=== PATIENT | female | born 1935 | race Caucasian/White ===

== ENCOUNTER 2018-09-07 13:14 | Emergency (ER) | payer MEDICARE, MEDICAID ==
[2018-09-07 15:51] LABS: Bilirubin Negative (Negative); Blood, Urine Trace (Negative); Clarity CLEAR (Clear); Glucose, Urine (Dipstick) Negative (Negative); Leukocyte Trace (Negative); Nitrite Negative (Negative); Protein, Urine (Dipstick) 30 mg/dL (Neg-Trace); Urobilinogen 0.2 mg/dL (0.2-1.0)
[2018-09-07 15:57] LABS: Bacteria/HPF None Seen HPF (None Seen); Hyaline Casts/LPF 0-3 HYALINE CAST LPF (0-3 Hyaline); Pathc Cast-AUWi Flag 0.14 (0-2.49); RBC/HPF 0-3 HPF (0-3); Squamous Epithelial 0-3 HPF (0-3); WBC/HPF 0-3 HPF (0-3)
== END 2018-09-07 17:51 | disposition home or self-care (01) ==
LOC: ERS 13:14
DX: L30.9 Dermatitis, unspecified (principal)
CPT/HCPCS: 81003; 81015; 99283

== ENCOUNTER 2018-11-21 14:36 | Emergency (ER) | payer MEDICARE, MEDICAID ==
[2018-11-21 15:48] LABS: Hemoglobin 13.6 g/dL (12.0-16.0); Mean Corpuscular HGB CONC 32.1 g/dL (32.0-36.0); Mean Corpuscular Hemoglobin 30.5 pg (27.0-31.0); Mean Platelet Volume 7.8 fL (7.4-10.4); Platelet Count 201 thou/uL (130-400); RBC Distribution Width 13.2 % (11.5-14.5); Red Blood Cell (RBC) Count 4.44 mill/uL (4.20-5.40); White Blood Cell (WBC) Count 6.4 thou/uL (4.8-10.8)
[2018-11-21 16:06] LABS: Band 1 % (5-11); Eosinophils 1 % (0-10); Lymphocytes 10 % (21-51); MDiff Complete? YES; Monocytes 1 % (0-10); Neutrophil 87 % (42-75); Platelet Morphology Comment Appears Adequate; Poikilocytosis SLIGHT = 6-15 cells (100X) (0-5/hpf)
[2018-11-21 16:21] LABS: ALT (SGPT) Less than 7 U/L (8-55); AST (SGOT) 23 U/L (5-34); Albumin 3.3 g/dL (3.4-4.8); Alkaline Phosphatase 107 U/L (40-150); Anion Gap 18 mmol/L (10-20); BUN (Urea Nitrogen) 26 mg/dL (9.8-20.1); Bilirubin, Total 0.4 mg/dL (0.2-1.2); Calc. Creatinine Clearance 0 mL/min (70-130); Calcium 8.8 mg/dL (7.8-10.44); Carbon Dioxide 17 mmol/L (23-31); Chloride 103 mmol/L (98-107); Estimated GFR-MDRD 26; Globulin 3.4 g/dL (2.4-3.5); Glucose 106 mg/dL (83-110); Potassium 4.6 mmol/L (3.5-5.1); Protein, Total 6.7 g/dL (6.0-8.3); Sodium 133 mmol/L (136-145)
== END 2018-11-21 17:40 | disposition home or self-care (01) ==
LOC: ERS 14:36
DX: R53.83 Other fatigue (principal); R53.81 Other malaise
CPT/HCPCS: 36415; 80053; 85025; A4353

== ENCOUNTER 2018-11-24 00:29 | Inpatient (IN) | payer MEDICARE, MEDICAID ==
[2018-11-24 00:56] LABS: Bacteria/HPF 4+ HPF (None Seen); RBC/HPF 0-3 HPF (0-3)
[2018-11-24 00:58] LABS: Bilirubin Small (Negative); Blood, Urine Negative (Negative); Clarity TURBID (Clear); Glucose, Urine (Dipstick) Negative (Negative); Leukocyte Large (Negative); Nitrite Negative (Negative); Protein, Urine (Dipstick) 100 mg/dL (Neg-Trace); Specific Gravity, Urine 1.011 (1.002-1.036); Urobilinogen 0.2 mg/dL (0.2-1.0); pH, Urine 7.5 (5.0-9.0)
[2018-11-24 01:00] LABS: Pathc Cast-AUWi Flag 3.69 (0-2.49); Yeast-AUWi Flag 50.4 (0-25.0)
[2018-11-24 01:05] LABS: Hyaline Casts/LPF 0-3 HYALINE CAST LPF (0-3 Hyaline); Yeast-All Forms None Seen HPF (None Seen)
[2018-11-24 01:06] LABS: Crystals/HPF 3+ AMORPH PHOS HPF (Negative); Manual Microscopic Reviewed? No Path Casts Seen
[2018-11-24 01:33] LABS: #Eosinphils 0.3 thou/uL (0.0-0.7); #Monocytes 0.6 thou/uL (0.11-0.59); #Neutrophils 5.4 thou/uL (1.40-6.50); %Basophils 0.4 % (0.0-1.0); %Eosinophils 4.6 % (0.0-10.0); %Monocytes 8.4 % (0.0-10.0); %Neutrophils 72.7 % (42.0-75.0); Hemoglobin 14.5 g/dL (12.0-16.0); Mean Corpuscular HGB CONC 32.2 g/dL (32.0-36.0); Mean Corpuscular Hemoglobin 30.3 pg (27.0-31.0); Mean Corpuscular Volume 94.2 fL (78.0-98.0); Platelet Count 186 thou/uL (130-400); RBC Distribution Width 13.2 % (11.5-14.5); Red Blood Cell (RBC) Count 4.77 mill/uL (4.20-5.40); White Blood Cell (WBC) Count 7.4 thou/uL (4.8-10.8)
[2018-11-24 01:49] LABS: ALT (SGPT) 8 U/L (8-55); AST (SGOT) 14 U/L (5-34); Albumin 4.4 g/dL (3.4-4.8); Alkaline Phosphatase 112 U/L (40-150); Anion Gap 18 mmol/L (10-20); BUN (Urea Nitrogen) 24 mg/dL (9.8-20.1); Bilirubin, Total 0.4 mg/dL (0.2-1.2); Calc. Creatinine Clearance 0 mL/min (70-130); Calcium 9.9 mg/dL (7.8-10.44); Carbon Dioxide 21 mmol/L (23-31); Chloride 104 mmol/L (98-107); Estimated GFR-MDRD 24; Globulin 3.1 g/dL (2.4-3.5); Glucose 96 mg/dL (83-110); Protein, Total 7.5 g/dL (6.0-8.3); Sodium 139 mmol/L (136-145)
[2018-11-24 02:20] LABS: CKMB 1.5 ng/mL (0-6.6)
[2018-11-24] MEDS ORDERED: Aspirin Chewable 81 MG TAB ONE (02:31)
[2018-11-24] MEDS ORDERED: cefTRIAXone\\ROCEPHIN 1 GM VIAL ONE (02:31)
--- NOTE | 2018-11-24 02:45 | PDOC.FPRHP ---
- History of Present Illness Chief Complaint: AMS History of Present Illness: Ms Yan is a 83yo female with pmh of dementia who resides at [facility] living who presented to the ED by EMS. Her neighbors called the police because she was hanging off her balcony screaming for help because "she didn't live there." HPI unobtainable due to mental status. She is oriented to person only. Requesting to leave because she reports she starts a new job tomorrow and lives with her mother. Her son's phone is turned off and [place] reports no one is available to talk to that sees her daily until 8am. It does appear that she has a hx of abdomen/pelvic cancer s/p extensive surgery as well as a left temporoparietal peripherally enhancing mass with central necrosis on MRI/CT 2013. ED Course: Rocephin 1g for UTI. ASA 325mg for elevated trop. EKG with Afib. No prior EKGs for reference. - History PMHx, FHx, Social: Unable to obtain due to pts mental status. Attempted to call [facility] but pt is in independent living and does not have caregiver. Staff for that building will not be available until 8am. PSHx: Extensive abdominal surgeries. - Review of Systems ROS unobtainable: due to mental status General: denies: fever/chills, fatigue Eyes: denies: eye pain, vision changes ENT: denies: nasal congestion, rhinorrhea Respiratory: denies: cough, congestion, shortness of breath Cardiovascular: denies: chest pain, palpitation Gastrointestinal: reports: other (urostomy and colostomy bag) Skin: denies: rashes, lesions Musculoskeletal: denies: pain, swelling - Vital signs BP: 168/95 HR: 65 RR: 18 Tmax: 97.8 Pox: 95% on RA Wt: 54kg - Physical Exam Constitutional: NAD, awake, alert and oriented, well developed -Constitutional: clothing soiled with stool HEENT: normocephalic and atraumatic, conjunctiva clear, MMM, oropharynx clear Neck: supple, trachea midline, no bruits Heart: RRR, no murmurs/rubs/gallops Lungs: CTAB, no respiratory distress Abdomen: soft, bowel sounds present -Abdomen: mild epigastric tenderness. No rebound or rigidity Musculoskeletal: normal structure, normal tone, ROM grossly normal Neurological: no focal deficit Skin: no rash/lesions -Skin: Urostomy and colostomy bag in place -Psychiatric: Oriented only to person FMR H&P: Results - Labs Result Diagrams: 11/24/18 01:15 11/24/18 01:15 Lab results: WBC 7.4 thou/uL (4.8-10.8) 11/24/18 01:15 Hgb 14.5 g/dL (12.0-16.0) 11/24/18 01:15 Hct 45.0 % (36.0-47.0) 11/24/18 01:15 MCV 94.2 fL (78.0-98.0) 11/24/18 01:15 Plt Count 186 thou/uL (130-400) 11/24/18 01:15 Neutrophils % 72.7 % (42.0-75.0) 11/24/18 01:15 Sodium 139 mmol/L (136-145) 11/24/18 01:15 Potassium 4.0 mmol/L (3.5-5.1) 11/24/18 01:15 Chloride 104 mmol/L (98-107) 11/24/18 01:15 Carbon Dioxide 21 mmol/L (23-31) L 11/24/18 01:15 BUN 24 mg/dL (9.8-20.1) H 11/24/18 01:15 Creatinine 2.01 mg/dL (0.6-1.1) H 11/24/18 01:15 Glucose 96 mg/dL (83-110) 11/24/18 01:15 Calcium 9.9 mg/dL (7.8-10.44) 11/24/18 01:15 Total Bilirubin 0.4 mg/dL (0.2-1.2) 11/24/18 01:15 AST 14 U/L (5-34) 11/24/18 01:15 ALT 8 U/L (8-55) 11/24/18 01:15 Alkaline Phosphatase 112 U/L (40-150) 11/24/18 01:15 CK-MB (CK-2) 1.5 ng/mL (0-6.6) 11/24/18 01:15 Serum Total Protein 7.5 g/dL (6.0-8.3) 11/24/18 01:15 Albumin 4.4 g/dL (3.4-4.8) 11/24/18 01:15 Urine Ketones Negative mg/dL (Negative) 11/24/18 00:43 Urine Blood Negative (Negative) 11/24/18 00:43 Urine Nitrite Negative (Negative) 11/24/18 00:43 Ur Leukocyte Esterase Large (Negative) H 11/24/18 00:43 Urine RBC 0-3 HPF (0-3) 11/24/18 00:43 Urine WBC Greater Than 50-TNTC HPF (0-3) H 11/24/18 00:43 Ur Squamous Epith Cells 4-6 HPF (0-3) H 11/24/18 00:43 Urine Bacteria 4+ HPF (None Seen) H 11/24/18 00:43 - EKG Interpretation EK lead EKG shows, atrial fibrillation with controlled ventricular response, ST segments normal, T waves, [place] normal. FMR H&P: A/P - Problem List (1) Atrial fibrillation Current Visit: Yes Status: Acute Code(s): I48.91 - UNSPECIFIED ATRIAL FIBRILLATION (2) Encephalopathy Current Visit: Yes Status: Acute Code(s): G93.40 - ENCEPHALOPATHY, UNSPECIFIED (3) Dementia Current Visit: Yes Status: Acute Code(s): F03.90 - UNSPECIFIED DEMENTIA WITHOUT BEHAVIORAL DISTURBANCE (4) UTI (urinary tract infection) Current Visit: Yes Status: Acute - Plan 83yo female with pmh of dementia presents for encephalopathy Encephalopathy - 2/2 UTI vs worsening dementia - Brain CT no acute abnormalities - UTI tx'ed with Ceftriaxone - Will obtain further hx from [place] and son in AM - Admit to tele obs Afib - Unknown if new onset - Ordered TSH, Mg, Phos - Monitor on tele UTI - Treated with Ceftriaxone in the ED HARINDER vs CKD - Cr 2.01 - Continue to monitor Urostomy & Colostomy Code Status: FULL, discuss with son and [place] in AM DVT ppx: SCDs FMR H&P: Upper Level - Pertinent history 83 yo female here via ambulance apparently from [place]. History given thru EMS who reports patient was picked up from [place]. Neighbors called because patient was screaming from [employer], saying she was going to jump off [employer]. 1 week of worsening AMS. Pt hx of dementia. Patient oriented to person, not place or time. Pt wants to go home because she is starting a new job soon. Refuses to answer some questions about where she is. Reports she is not staying at the hospital overnight. Apparently ER doctor called [facility] and spoke to multiple people who all said they do not have any record of the patient. Patient did not come with any paperwork such as medications or diagnosis. Per records, patient does have an colostomy and urostomy which are presumptively from a surgery related to hx lung cancer. MRI in chart indicating possible metastasis to brain. - Pertinent findings 168/95 HR: 77 98% on RA RR: 20 GEN: awake, easily agitated, oriented x1 CARD: irreg irregular, no murmurs noted PULM: CTAB Trop: 0.035 UA: large LE, WBC >50, bacteria 4+, squam epith 4-6 - Plan Date/Time: 11/24/18 0245 I, José Espinoza DO, have evaluated this patient and agree with findings/plan as outlined by technology development intern resident. Pertinent changes/additions are listed here. #acute encephalopathy 2/2 UTI -vs worsening dementia vs delirium, sundowning -rocephin in the ED UA on 09/07/18 had trace LE and trace blood, otherwise unremarkable -will admit for further monitoring -will attempt to call [facility] and family members in the morning for collateral including a medication list -urine cultures #indeterminate troponins -continue to trend #atrial fibrillation -rate controlled -telemetry -mg, phos, tsh -med rec #HARINDER vs CKD -she had similarly elevated Cr and GFR 3 days prior in hospital records #elevated BP Addendum - Attending - Attending Attestation Date/Time: 11/24/18 8796 I personally evaluated the patient and discussed the management with Dr. Monroy /Olga. I agree with the History, Examination, Assessment and Plan documented above with any addition or exceptions noted below. Patient here with altered mentation per neighbors but otherwise unknown recent medical history or complaints. She confabulates during my questioning this morning. We will discuss her case with [facility] this morning as well as the family to see if we can get further info. Continue workup for encephalopathy and suspect possible UTI at this time that we will continue treatment for. Further mgmt per clinical course.
[2018-11-24 04:51] LABS: Troponin I 0.027 ng/mL (< 0.028)
--- NOTE | 2018-11-24 05:29 | PDOC.FM ---
- Subjective Subjective: Patient does not know where she is this AM. Denies any pain. States that she has to go home for a job interview. States she feels confused. - Objective Result Diagrams: 11/24/18 01:15 11/24/18 01:15 Phys Exam - Physical Examination Constitutional: NAD HEENT: PERRLA, moist MMs Respiratory: no wheezing, clear to auscultation bilateral diffusely diminished breath sounds Cardiovascular: RRR, no significant murmur Gastrointestinal: soft, non-tender, no distention Musculoskeletal: no edema, pulses present Neurological: non-focal, moves all 4 limbs Psychiatric: normal affect Deviation from normal: AOx1 to self Skin: no rash, cap refill <2 seconds Dx/Plan (1) Encephalopathy Code(s): G93.40 - ENCEPHALOPATHY, UNSPECIFIED Status: Acute (2) Colostomy in place Code(s): Z93.3 - COLOSTOMY STATUS Status: Acute (3) Presence of urostomy Code(s): Z93.6 - OTHER ARTIFICIAL OPENINGS OF URINARY TRACT STATUS Status: Acute (4) Atrial fibrillation Code(s): I48.91 - UNSPECIFIED ATRIAL FIBRILLATION Status: Acute (5) Dementia Code(s): F03.90 - UNSPECIFIED DEMENTIA WITHOUT BEHAVIORAL DISTURBANCE Status: Acute (6) UTI (urinary tract infection) Status: Acute (7) Hypomagnesemia Code(s): E83.42 - HYPOMAGNESEMIA Status: Acute - Plan Plan: Encephalopathy - 2/2 UTI vs worsening dementia - Brain CT no acute abnormalities - on Ceftriaxone - Will obtain further hx from [place] and son Pulmonary infiltrate vs Mass -CXR: R upper infiltrate - 2 view CXR pending - Procal pending - Pt on rocephin Afib - Unknown if new onset - Ordered TSH, Mg, Phos - mag low, others normal - Monitor on tele Hypomagnesemia -replace with IV mag this AM UTI - Treated with Ceftriaxone in the ED HARINDER vs CKD - Cr 2.01 - Continue to monitor Urostomy & Colostomy present Code Status: FULL, discuss with son and [place] in AM DVT ppx: SCDs Addendum - Attending - Attending Attestation Date/Time: 11/24/18 0920 I personally evaluated the patient and discussed the management with Dr. Díaz. I agree with the History, Examination, Assessment and Plan documented above with any addition or exceptions noted below. Encephalopathy workup as per H/P. Will discuss with family and facility regarding recent health status.
[2018-11-24 07:51] LABS: Magnesium 1.3 mg/dL (1.6-2.6); Phosphorus 2.9 mg/dL (2.3-4.7)
[2018-11-24 07:57] LABS: Troponin I 0.032 ng/mL (< 0.028)
--- NOTE | 2018-11-24 08:35 | RAD ---
PORTABLE CHEST: Date: 11/24/18 HISTORY: Mental status change. COMPARISON: 06/20/12. FINDINGS: Lungs show chronic change with mild hyperexpansion. There is increased density in the right apex toda y when compared to the prior study. This density overlies the anterior right first rib, but is asymme tric in appearance. A right apical mass or infiltrate cannot be excluded. Lungs otherwise appear clear. There is no evidence of vascular congestion or significant effusion. He art is mildly enlarged. Degenerative changes at both shoulders, more severe on the left. Old left rib fractures with rib defo rmities. IMPRESSION: There is a new opacity in the right lung apex when compared to recent exam. Mass density or infiltrat e not excluded. Upright PA and lateral views would be of benefit for better evaluation. Findings were relayed to the emergency department at the time of dictation. CODE CR. CODE T. POS: [facility]
--- NOTE | 2018-11-24 08:51 | CT ---
PRELIMINARY REPORT/[facility]/EMERGENTY AFTER-HOURS PROCEDURE CT Head Without Contrast EXAM DATE/TIME: 11/24/2018 12:48 AM CLINICAL HISTORY: 83 years old, female; Signs and symptoms; Altered mental status/memory loss; Confusion or disorientat ion; Patient HX: F83 presents to ed for AMS. Ems reports PT has dementia. Ems called bc PT was maddy b[place]ant [facility] for help at [place], hanging off balcony. PT ano x1, abnormal, friends reports thi s is the worst case of dementia ever. PT denies any pain, any cough or fever, has no complaints. TECHNIQUE: Axial computed tomography images of the head/brain without contrast. COMPARISON: No relevant prior studies available. FINDINGS: Brain: Scattered areas of hypoattenuation, likely chronic small vessel ischemic change, demyelination , or gliosis. No mass, hemorrhage, or acute infarction. Old lacunar infarction within the left periat rial white matter. Ventricles: Normal. Bones/joints: Normal. Sinuses: Normal as visualized. Mastoid air cells: Normal as visualized. Soft tissues: Unremarkable. Vasculature: Atherosclerotic vascular calcifications. IMPRESSION: No acute intracranial abnormality. Thank you for allowing us to participate in the care of your patient. Dictated and Authenticated by: Kurt Rodarte MD 11/24/2018 1:32 AM Central Time ([place] & [place]) FINAL REPORT HEAD CT WITHOUT CONTRAST: COMPARISON: 03/04/2004. HISTORY: Altered mental status. Memory loss. Dementia. FINDINGS: This report is in agreement with the preliminary report by [facility]. No acute intracranial process. Age- appropriate atrophy. Chronic small-vessel ischemic changes of the white matter are identified. Smal l calcification of the white matter adjacent to the posterior body of the left lateral ventricle, lik chepe representing a chronic process and may be sequelae of remote insult. POS: [facility]
[2018-11-24] MEDS ORDERED: Magnesium 2 GM/50 ML 2 GM in Premix Bag 1 BAG IVPB SCH (12:30)
[2018-11-24] MEDS ORDERED: Buprenorphine [Butrans] 1 PATCH TD SCH (13:15)
[2018-11-24 17:47] VITALS: BMI 19.0
--- NOTE | 2018-11-24 19:22 | CON ---
DATE OF CONSULTATION: 11/23/2018 REASON FOR CONSULTATION: Atrial fibrillation. HISTORY OF PRESENT ILLNESS: Ms. Yan is an 83-year-old woman with previous history of dementia and confusion, who recently was found to be in atrial fibrillation. She recently presented to the emergency room via EMS due to dementia. During my interview, she is not oriented to time or place. She currently denies any symptoms. 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 SOCIAL HISTORY: Currently resides in group home. HOME MEDICATIONS: Include, 1. Amlodipine. 2. Aspirin. 3. Clopidogrel. 4. Lasix. 5. Pravastatin. 6. Tramadol. REVIEW OF SYSTEMS: Unobtainable. PHYSICAL EXAMINATION: VITAL SIGNS: Blood pressure 120/70, pulse 80, and respirations 20. GENERAL: The patient is a pleasant 83-year-old, who is in no acute distress. The patient appears their stated age. NEUROLOGIC: The patient is not oriented to time or place. HEENT: Sclerae without icterus. Mouth has moist mucous membranes with normal pallor. NECK: No JVD. Carotid upstroke brisk. No bruits bilaterally. LUNGS: Clear to auscultation with unlabored respirations. BACK: No scoliosis or kyphosis. CARDIAC: Irregularly irregular. ABDOMEN: Soft, nontender, nondistended. No peritoneal signs present. No hepatosplenomegaly. No abnormal striae. EXTREMITIES: 2+ femoral and 2+ dorsalis pedis pulses. No cyanosis, clubbing, or edema. SKIN: No gross abnormalities. PERTINENT LABORATORY DATA: Hemoglobin 14.5. Peak troponin 0.032. IMPRESSION: 1. Atrial fibrillation. 2. Dementia. 3. Altered mental status. 4. Urinary tract infection. RECOMMENDATIONS: At this point, recommend rate control. Heart rate appears stable. At this point, I do not feel she is appropriate candidate for anticoagulation therapy. We will continue to monitor closely. Recommend echo with Doppler. We will add low-dose beta-bryce for better rate control. Otherwise, I would recommend a conservative therapy. Job ID: [id number] MTDD
[2018-11-24] MEDS ORDERED: Sterile Water 10 ML VIAL FS PRN (20:08)
[2018-11-24] MEDS: Ziprasidone 20 MG VIAL IM PRN (20:20)
[2018-11-24] MEDS: hydrALAZINE 20 MG/ML VIAL SLOW IVP PRN (21:37)
[2018-11-24] MEDS: Atorvastatin Calcium 20 MG TAB PO SCH (21:37)
[2018-11-24] MEDS: cefTRIAXone\\ROCEPHIN 1 GM in Sodium Chloride 0.9% 100 ML IVPB SCH (21:37)
[2018-11-24] MEDS ORDERED: Lorazepam 2 MG/ML VIAL SLOW IVP PRN (23:03)
[2018-11-25] MEDS: hydrALAZINE 20 MG/ML VIAL SLOW IVP PRN ×2 (06:05→23:55)
--- NOTE | 2018-11-25 06:33 | PDOC.FM ---
- Subjective Subjective: Patient sleeping on exam this morning. In soft restraints. - Objective Vital Signs & Weight: Vital Signs (12 hours) Temp Pulse Resp BP Pulse Ox 11/25/18 05:30 97.4 F L 82 16 197/95 H 94 L 11/24/18 19:45 98.4 F 61 16 184/96 H 98 Weight Weight 44.197 kg Result Diagrams: 11/25/18 06:09 11/25/18 06:09 Phys Exam - Physical Examination Constitutional: NAD HEENT: moist MMs Neck: no nodes, supple Respiratory: no wheezing, clear to auscultation bilateral Cardiovascular: RRR, no significant murmur Gastrointestinal: soft, non-tender, no distention, positive bowel sounds Musculoskeletal: no edema, pulses present Skin: no rash, normal turgor, cap refill <2 seconds Dx/Plan (1) Encephalopathy Code(s): G93.40 - ENCEPHALOPATHY, UNSPECIFIED Status: Acute (2) Colostomy in place Code(s): Z93.3 - COLOSTOMY STATUS Status: Acute (3) Presence of urostomy Code(s): Z93.6 - OTHER ARTIFICIAL OPENINGS OF URINARY TRACT STATUS Status: Acute (4) Atrial fibrillation Code(s): I48.91 - UNSPECIFIED ATRIAL FIBRILLATION Status: Acute (5) Dementia Code(s): F03.90 - UNSPECIFIED DEMENTIA WITHOUT BEHAVIORAL DISTURBANCE Status: Acute (6) UTI (urinary tract infection) Status: Acute (7) Hypomagnesemia Code(s): E83.42 - HYPOMAGNESEMIA Status: Acute - Plan Plan: Encephalopathy - 2/2 UTI vs worsening dementia - Patient placed in soft restraints and given geodon overnight, as she was combative and attempting to pull out lines. - Continue reorienting - Brain CT no acute abnormalities - on Ceftriaxone - Son requests CM to help with placement at [facility], CM consulted -States he was working on placing her outpatient prior to arrival UTI - WBC elevated this AM, may be 2/2 to stress vs infection - Continue ceftriaxone, cultures pending Pulmonary infiltrate vs Mass with Hx of lung cancer - CXR: R upper infiltrate - Procal negative - hx of lung cancer with mets to bone, brain HTN - continue amlodipine, furosemide, aspirin; started metoprolol today - Hydralazine PRN Afib - New onset per PCP - Ordered TSH, Mg, Phos - mag low, others normal - Cardiology Dr. Danielson consulted 11/24, recommendations appreciated -Conservative therapy, added a beta bryce -Metoprolol 25 mg daily added -Echo pending SVT overnight -16 beats, 180s-210 rate Hypomagnesemia -replaced with IV mag HARINDER vs CKD, improving - Cr 2.01 -> 1.53 Urostomy & Colostomy present Hx Uterine cancer Hx recent fall with rib fractures -buprenorphine patch Hx Macular degeneration Code Status: DNAR DVT ppx: SCDs PCP: Dr. Small, [facility] Addendum - Attending - Attending Attestation Date/Time: 11/25/18 2467 I personally evaluated the patient and discussed the management with Dr. Díaz. I agree with the History, Examination, Assessment and Plan documented above with any addition or exceptions noted below. Patient here for suspected encephalopathy 2/2 infection on top of co-exisiting dementia. She had some agitation and aggression overnight, but is currently resting comfortably and seems to be somewhat more lucid this morning. Per son, she has a history of similar issues from previous UTI. Continue Rocephin and await cx results. BP improved as compared to last night, will need to monitor. Work with CM on placement. Anticipate a few more days of hospitalization pending clinical course.
[2018-11-25 06:38] LABS: BUN (Urea Nitrogen) 20 mg/dL (9.8-20.1); Calc. Creatinine Clearance 20 mL/min (70-130); Calcium 9.4 mg/dL (7.8-10.44); Carbon Dioxide 19 mmol/L (23-31); Chloride 106 mmol/L (98-107); Estimated GFR-MDRD 32; Glucose 120 mg/dL (83-110); Potassium 4.2 mmol/L (3.5-5.1); Sodium 139 mmol/L (136-145)
[2018-11-25 06:48] LABS: #Basophils 0.2 thou/uL (0.0-0.2); #Eosinphils 0.1 thou/uL (0.0-0.7); #Lymphocytes 0.4 thou/uL (1.20-3.40); #Monocytes 0.7 thou/uL (0.11-0.59); #Neutrophils 11.5 thou/uL (1.40-6.50); %Basophils 1.7 % (0.0-1.0); %Eosinophils 0.9 % (0.0-10.0); %Lymphocytes 2.7 % (21.0-51.0); %Monocytes 5.6 % (0.0-10.0); %Neutrophils 89.1 % (42.0-75.0); Hemoglobin 14.1 g/dL (12.0-16.0); Mean Corpuscular HGB CONC 31.7 g/dL (32.0-36.0); Mean Corpuscular Hemoglobin 29.8 pg (27.0-31.0); Mean Corpuscular Volume 94.2 fL (78.0-98.0); Platelet Count 162 thou/uL (130-400); RBC Distribution Width 13.2 % (11.5-14.5); Red Blood Cell (RBC) Count 4.72 mill/uL (4.20-5.40); White Blood Cell (WBC) Count 12.9 thou/uL (4.8-10.8)
[2018-11-25 06:55] LABS: Anion Gap 18 mmol/L (10-20)
[2018-11-25] MEDS: Clopidogrel Bisulfate 75 MG TAB PO SCH (11:19)
[2018-11-25] MEDS: Amlodipine 5 MG TAB PO SCH (11:19)
[2018-11-25] MEDS: Furosemide 40 MG TAB PO SCH (11:19)
[2018-11-25] MEDS: Aspirin 81 mg Enteric Coated Tablet PO SCH (11:19)
[2018-11-25] MEDS: cefTRIAXone\\ROCEPHIN 1 GM in Sodium Chloride 0.9% 100 ML IVPB SCH (21:11)
[2018-11-25] MEDS: Atorvastatin Calcium 20 MG TAB PO SCH (21:11)
--- NOTE | 2018-11-26 07:29 | PDOC.FM ---
- Subjective Subjective: Patient remains confused this AM. She slept well overnight per nursing. Per son , patient is still not back at baseline and is more confused than normal. Patient has no other complaints this AM. - Objective Vital Signs & Weight: Vital Signs (12 hours) Temp Pulse Resp BP BP Pulse Ox 11/26/18 04:00 97.8 F 109 H 20 134/95 H 92 L 11/26/18 01:09 99 16 116/55 L 95 11/26/18 00:00 98.3 F 76 20 186/86 H 92 L 11/25/18 23:55 74 186/86 H 11/25/18 19:40 97.7 F 74 18 158/78 H 96 Weight Weight 44.588 kg I&O: 11/25/18 11/26/18 11/27/18 06:59 06:59 06:59 Intake Total 200 460 Output Total 750 1250 Balance -550 -790 Result Diagrams: 11/25/18 06:09 11/25/18 06:09 Phys Exam - Physical Examination Constitutional: NAD HEENT: PERRLA Respiratory: no wheezing, clear to auscultation bilateral Cardiovascular: RRR, no significant murmur Gastrointestinal: soft, non-tender, no distention, positive bowel sounds Musculoskeletal: no edema, pulses present Neurological: non-focal, normal sensation, moves all 4 limbs Psychiatric: normal affect Deviation from normal: AOx1 Skin: normal turgor, cap refill <2 seconds Dx/Plan (1) Encephalopathy Code(s): G93.40 - ENCEPHALOPATHY, UNSPECIFIED Status: Acute (2) Colostomy in place Code(s): Z93.3 - COLOSTOMY STATUS Status: Acute (3) Presence of urostomy Code(s): Z93.6 - OTHER ARTIFICIAL OPENINGS OF URINARY TRACT STATUS Status: Acute (4) Atrial fibrillation Code(s): I48.91 - UNSPECIFIED ATRIAL FIBRILLATION Status: Acute (5) Dementia Code(s): F03.90 - UNSPECIFIED DEMENTIA WITHOUT BEHAVIORAL DISTURBANCE Status: Acute (6) UTI (urinary tract infection) Status: Acute (7) Hypomagnesemia Code(s): E83.42 - HYPOMAGNESEMIA Status: Acute - Plan Plan: Encephalopathy - 2/2 UTI vs worsening dementia - Patient has had episode of combativeness during stay - Continue reorienting - Brain CT no acute abnormalities - Continue Ceftriaxone - Son requests CM to help with placement at [facility], CM consulted -States he was working on placing her outpatient prior to arrival - Slept well overnight, occasionally combative but doing better today. Keep all windows open, keep patient awake throughout day time. [place] as necessary. UTI - WBC elevated this AM, may be 2/2 to stress vs infection - Continue ceftriaxone, cultures showed 3 organisms/contamination, consider reculturing today Hx of lung cancer - CXR: R upper infiltrate - Procal negative - hx of lung cancer with mets to bone, brain HTN - continue amlodipine, furosemide, aspirin; started metoprolol today - Hydralazine PRN New Onset Afib - No History of a fib per PCP - Ordered TSH, Mg, Phos - mag low, others normal - Cardiology Dr. 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 Small, [facility] Addendum - Attending - Attending Attestation Date/Time: 11/26/18 1049 I personally evaluated the patient and discussed the management with Dr. Díaz. I agree with the History, Examination, Assessment and Plan documented above with any addition or exceptions noted below. Patient not agitated overnight, but is a little angry this morning. Continues to require sitter and frequent re-orientation. Her workup has overall been benign with the exception of UA that grew out a contaminated sample. We will continue Rocephin to complete a 5 day course. As she is more lucid and did not have agitation overnight, I would suspect that she is making some small improvements. We are working on more bar steward placement for her in coordination with the son and CM.
[2018-11-26] MEDS: Lactated Ringer's 1,000 ML IV SCH ×2 (09:24→22:31)
[2018-11-26] MEDS: Amlodipine 5 MG TAB PO SCH (09:25)
[2018-11-26] MEDS: Aspirin 81 mg Enteric Coated Tablet PO SCH (09:26)
[2018-11-26] MEDS: Clopidogrel Bisulfate 75 MG TAB PO SCH (09:26)
--- NOTE | 2018-11-26 10:32 | PQF ---
DATE: 11-26-18 ATTN: DR. VAUGHN GALINDO Please exercise your independent, professional judgment in responding to the clarification form. Clinical indicators are provided on the bottom of this form for your review Please check appropriate box(s): [ x ] Encephalopathy: Type: [ x ] Acute [ ] Subacute [ ] Chronic Etiology: [ ] Metabolic [ ] Toxic [ x ] in the setting of underlying dementia [ ] Other (please specify) [ ] Transient Alteration of Awareness [ x] Other diagnosis Infectious [ ] Unable to determine In addition, please specify: Present on Admission (POA): [ x ] Yes [ ] No [ ] Unable to determine For continuity of documentation, please document condition throughout progress notes and discharge summary. Thank You. Acute Infectious Encephalopathy in the setting of chronic dementia, POA CLINICAL INDICATORS - SIGNS / SYMPTOMS / LABS ER DX: UTI, AMS, A FIB, ELEVATED TROP H&P: ACUTE ENCEPHALOPATHY, DEMENTIA, UTI, HARINDER VS CKD RISK FACTORS H&P: ACUTE ENCEPHALOPATHY, DEMENTIA, UTI, HARINDER VS CKD TREATMENTS: H&P: ROCEPHIN IN THE ED, FURTHER MONITORING, URINE CULTURES MAR: 11-24-18: ROCEPHIN, LR IVF , GEODON IM PRN (This form is maintained as a part of the permanent medical record) 2015 [employer] All Rights Reserved [email or web address] Office: [phone] NIUR[place]
[2018-11-26] MEDS: Furosemide 40 MG TAB PO SCH (10:33)
[2018-11-26] MEDS: Ziprasidone 20 MG VIAL IM PRN (19:06)
[2018-11-26] MEDS: Atorvastatin Calcium 20 MG TAB PO SCH (21:48)
[2018-11-26] MEDS: cefTRIAXone\\ROCEPHIN 1 GM in Sodium Chloride 0.9% 100 ML IVPB SCH (21:48)
[2018-11-26 23:58] LABS: #Eosinphils 0.4 thou/uL (0.0-0.7); #Lymphocytes 0.9 thou/uL (1.20-3.40); #Monocytes 0.6 thou/uL (0.11-0.59); #Neutrophils 4.1 thou/uL (1.40-6.50); %Basophils 0.7 % (0.0-1.0); %Eosinophils 6.7 % (0.0-10.0); %Lymphocytes 15.1 % (21.0-51.0); %Monocytes 9.6 % (0.0-10.0); Hemoglobin 12.6 g/dL (12.0-16.0); Mean Corpuscular HGB CONC 31.7 g/dL (32.0-36.0); Mean Corpuscular Hemoglobin 30.1 pg (27.0-31.0); Mean Corpuscular Volume 94.9 fL (78.0-98.0); Mean Platelet Volume 7.7 fL (7.4-10.4); Platelet Count 198 thou/uL (130-400); RBC Distribution Width 13.4 % (11.5-14.5); Red Blood Cell (RBC) Count 4.19 mill/uL (4.20-5.40); White Blood Cell (WBC) Count 6.1 thou/uL (4.8-10.8)
[2018-11-26] MEDS: hydrALAZINE 20 MG/ML VIAL SLOW IVP PRN (23:58)
[2018-11-27 06:28] LABS: #Basophils 0.1 thou/uL (0.0-0.2); #Eosinphils 0.5 thou/uL (0.0-0.7); #Lymphocytes 0.8 thou/uL (1.20-3.40); #Monocytes 0.6 thou/uL (0.11-0.59); #Neutrophils 5.1 thou/uL (1.40-6.50); %Eosinophils 7.3 % (0.0-10.0); %Lymphocytes 11.1 % (21.0-51.0); %Monocytes 8.9 % (0.0-10.0); %Neutrophils 71.7 % (42.0-75.0); Hemoglobin 12.6 g/dL (12.0-16.0); Mean Corpuscular HGB CONC 31.7 g/dL (32.0-36.0); Mean Corpuscular Hemoglobin 30.6 pg (27.0-31.0); Mean Corpuscular Volume 96.5 fL (78.0-98.0); Platelet Count 202 thou/uL (130-400); RBC Distribution Width 13.5 % (11.5-14.5); Red Blood Cell (RBC) Count 4.13 mill/uL (4.20-5.40); White Blood Cell (WBC) Count 7.1 thou/uL (4.8-10.8)
--- NOTE | 2018-11-27 06:36 | PDOC.FM ---
- Subjective Subjective: Patient is confused this AM, stating that she has to leave the hospital to go back to work. States she has a headache, denies any other pain or symptoms. Received Geodon overnight as she was being combative. - Objective Vital Signs & Weight: Vital Signs (12 hours) Temp Pulse Resp BP BP Pulse Ox 11/27/18 03:45 98.0 F 77 18 128/69 96 11/27/18 01:00 74 127/60 11/26/18 23:58 72 181/78 H 11/26/18 23:49 72 18 181/78 H 92 L 11/26/18 20:00 92 L 11/26/18 19:50 98.4 F 85 17 130/75 92 L Weight Weight 44.588 kg I&O: 11/25/18 11/26/18 11/27/18 06:59 06:59 06:59 Intake Total 200 460 970 Output Total 750 1250 150 Balance -550 -790 820 Result Diagrams: 11/27/18 05:36 11/25/18 06:09 Phys Exam - Physical Examination Respiratory: no wheezing Pt non-cooperative, difficult to examine. Diminished lung sounds at bases Cardiovascular: RRR, no significant murmur Gastrointestinal: soft, non-tender, no distention, positive bowel sounds Musculoskeletal: no edema, pulses present Neurological: moves all 4 limbs Deviation from normal: Confused and disoriented. States she has to go to work Skin: normal turgor Dx/Plan (1) Encephalopathy Code(s): G93.40 - ENCEPHALOPATHY, UNSPECIFIED Status: Acute (2) Colostomy in place Code(s): Z93.3 - COLOSTOMY STATUS Status: Acute (3) Presence of urostomy Code(s): Z93.6 - OTHER ARTIFICIAL OPENINGS OF URINARY TRACT STATUS Status: Acute (4) Atrial fibrillation Code(s): I48.91 - UNSPECIFIED ATRIAL FIBRILLATION Status: Acute (5) Dementia Code(s): F03.90 - UNSPECIFIED DEMENTIA WITHOUT BEHAVIORAL DISTURBANCE Status: Acute (6) UTI (urinary tract infection) Status: Acute (7) Hypomagnesemia Code(s): E83.42 - HYPOMAGNESEMIA Status: Acute - Plan Plan: Encephalopathy - 2/2 UTI vs worsening dementia - Patient has had episodes of combativeness during stay, and at times refusing to eat or drink - Given geodon overnight - Continue reorienting - Brain CT no acute abnormalities - Continue Ceftriaxone - Son requests CM to help with placement at [facility], SHELL consulted -States he was working on placing her outpatient prior to arrival - Keep all window curtains open, keep patient awake throughout day time. [place] as necessary. 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 Small, [facility] Addendum - Attending - Attending Attestation Date/Time: 11/27/18 1111 I personally evaluated the patient and discussed the management with Dr. Díaz. I agree with the History, Examination, Assessment and Plan documented above with any addition or exceptions noted below. Patient continues to be confused, but somewhat improved from admission. Consider whether this may be new baseline, as other workup has been negative. Continue IV abx and await placement. Try to withhold further antipyschotic meds unless agitation and aggression occur.
--- NOTE | 2018-11-27 06:43 | PRG ---
DATE OF SERVICE: 11/25/2018 TIME OF VISIT: 10:00 a.m. SUBJECTIVE: Ms. Yan is currently confused, which apparently is her normal mental status state. This is the first time I have seen her. Her telemetry shows she is remaining in normal sinus rhythm. There are no acute overnight events. OBJECTIVE: VITAL SIGNS: Reviewed and stable. NEUROLOGIC: She is alert and awake. CHEST: Clear to auscultation bilaterally. CARDIOVASCULAR: Regular rate and rhythm with normal S1 and S2. ABDOMEN: Soft, nontender to palpation, and nondistended. EXTREMITIES: Show no clubbing, cyanosis or edema. SKIN: Warm and dry. DIAGNOSTIC STUDIES: Telemetry shows the patient to be maintained in normal sinus rhythm. IMPRESSION: 1. Paroxysmal atrial fibrillation. 2. Dementia, no acute encephalopathy. 3. Hypertension. 4. History of brain cancer with metastatic disease. PLAN: I discussed the case with Dr. Chappell. From a rhythm standpoint, we will continue beta-blockers only. No anticoagulation at this time either given her mental status changes and comorbidities. in the future as an outpatient recovery. She is rate controlled and euvolemic. Clinically stable. We will sign off her and see her as needed. Please call us for further assistance. Job ID: [id number]
[2018-11-27] MEDS: Clopidogrel Bisulfate 75 MG TAB PO SCH (09:57)
[2018-11-27] MEDS: Aspirin 81 mg Enteric Coated Tablet PO SCH (09:57)
[2018-11-27] MEDS: Furosemide 40 MG TAB PO SCH (09:57)
[2018-11-27] MEDS: Amlodipine 5 MG TAB PO SCH (09:57)
[2018-11-27] MEDS: Lactated Ringer's 1,000 ML IV SCH (13:04)
--- NOTE | 2018-11-27 13:35 | PDOC.CTH ---
Cardiology Progress Note - Subjective Visited with pt. She saidf she doesnt know me and not interested in talking to me. Also after reviewing initial EKG, she appears to be in SR and no Afib. PAC's were noted. - Objective Vital Signs Temp Pulse Resp BP BP Pulse Ox 11/27/18 11:50 96.4 F L 88 18 126/60 95 11/27/18 07:24 98.0 F 88 18 119/68 94 L 11/27/18 03:45 98.0 F 77 18 128/69 96 Weight 98 lb 4.8 oz 11/26/18 11/27/18 11/28/18 06:59 06:59 06:59 Intake Total 460 1935 240 Output Total 1250 675 Balance -790 1260 240 - Physical Examination General/Neuro: NAD Neck: carotid US brisk, no JVD present Lungs: CTA, unlabored respirations Heart: PMI normal, RRR Abdomen: NT/ND, soft Extremities: + femoral B - Telemetry Telemetry Rhythm: SR - Labs Result Diagrams: 11/27/18 05:36 11/25/18 06:09 Troponin/CKMB CK-MB (CK-2) 1.5 ng/mL (0-6.6) 11/24/18 01:15 Troponin I 0.032 ng/mL (< 0.028) H 11/24/18 07:20 - Assessment/Plan Dysrhythmia MS changes UTI CV status stable. Intermittent episodes of SVT. No symptoms. Given no afib,. recommend observation. No ACT. EF also normal Will sign off. Please reconsult if needed.
[2018-11-27] MEDS: Atorvastatin Calcium 20 MG TAB PO SCH (20:40)
[2018-11-27] MEDS: Cefdinir 300 MG CAP PO SCH (20:40)
[2018-11-27] MEDS ORDERED: Ziprasidone 20 MG VIAL IM PRN (21:23)
[2018-11-27] MEDS ORDERED: Sterile Water 10 ML VIAL FS PRN (21:23)
[2018-11-28 06:12] LABS: #Eosinphils 0.5 thou/uL (0.0-0.7); #Lymphocytes 0.9 thou/uL (1.20-3.40); #Monocytes 0.7 thou/uL (0.11-0.59); #Neutrophils 4.7 thou/uL (1.40-6.50); %Basophils 0.5 % (0.0-1.0); %Eosinophils 7.4 % (0.0-10.0); %Lymphocytes 13.1 % (21.0-51.0); %Monocytes 10.3 % (0.0-10.0); %Neutrophils 68.8 % (42.0-75.0); Hemoglobin 11.3 g/dL (12.0-16.0); Mean Corpuscular HGB CONC 31.8 g/dL (32.0-36.0); Mean Corpuscular Hemoglobin 30.2 pg (27.0-31.0); Mean Corpuscular Volume 94.9 fL (78.0-98.0); Mean Platelet Volume 7.6 fL (7.4-10.4); Platelet Count 208 thou/uL (130-400); RBC Distribution Width 13.2 % (11.5-14.5); Red Blood Cell (RBC) Count 3.74 mill/uL (4.20-5.40); White Blood Cell (WBC) Count 6.8 thou/uL (4.8-10.8)
[2018-11-28 06:31] LABS: Anion Gap 13 mmol/L (10-20); BUN (Urea Nitrogen) 27 mg/dL (9.8-20.1); Calc. Creatinine Clearance 17 mL/min (70-130); Calcium 8.4 mg/dL (7.8-10.44); Carbon Dioxide 23 mmol/L (23-31); Chloride 104 mmol/L (98-107); Estimated GFR-MDRD 28; Glucose 85 mg/dL (83-110); Potassium 3.7 mmol/L (3.5-5.1); Sodium 136 mmol/L (136-145)
--- NOTE | 2018-11-28 06:57 | PDOC.FM ---
- Subjective Subjective: Patient states that she wants to leave this morning. She also states that she wants to call her father and speak with her boyfriend. Otherwise she is eating breakfast and no complaints. - Objective Vital Signs & Weight: Vital Signs (12 hours) Temp Pulse Resp BP Pulse Ox 11/28/18 04:00 98.4 F 68 20 132/64 94 L 11/27/18 20:20 98.0 F 67 17 119/58 L 95 Weight Weight 44.588 kg I&O: 11/26/18 11/27/18 11/28/18 06:59 06:59 06:59 Intake Total 460 1935 1720 Output Total 2311 381 2109 Balance -790 1260 145 Result Diagrams: 11/28/18 05:44 11/28/18 05:44 Phys Exam - Physical Examination Constitutional: NAD HEENT: moist MMs Respiratory: no wheezing, clear to auscultation bilateral diminished breath sounds diffusely, difficult exam due to uncooperation Cardiovascular: RRR, no significant murmur Gastrointestinal: soft, non-tender, no distention, positive bowel sounds Musculoskeletal: no edema, pulses present Neurological: non-focal, moves all 4 limbs Deviation from normal: AOx1 Skin: no rash, normal turgor Dx/Plan (1) Encephalopathy Code(s): G93.40 - ENCEPHALOPATHY, UNSPECIFIED Status: Acute (2) Colostomy in place Code(s): Z93.3 - COLOSTOMY STATUS Status: Acute (3) Presence of urostomy Code(s): Z93.6 - OTHER ARTIFICIAL OPENINGS OF URINARY TRACT STATUS Status: Acute (4) Atrial fibrillation Code(s): I48.91 - UNSPECIFIED ATRIAL FIBRILLATION Status: Acute (5) Dementia Code(s): F03.90 - UNSPECIFIED DEMENTIA WITHOUT BEHAVIORAL DISTURBANCE Status: Acute (6) UTI (urinary tract infection) Status: Acute (7) Hypomagnesemia Code(s): E83.42 - HYPOMAGNESEMIA Status: Acute - Plan Plan: Acute infectious Encephalopathy, complicated by underlying progressing dementia - UTI being treated as below - Patient has had episodes of combativeness during stay, and at times refusing to eat or drink - Brain CT no acute abnormalities - Son requests CM to help with placement at [facility], CM consulted -States he was working on placing her outpatient prior to arrival - Keep all window curtains open, keep patient awake throughout day time. [place] as necessary. 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 Coello consulted 11/24, recommendations appreciated -Conservative therapy, added a beta bryce metoprolol which also may help her episodes of SVT see below - states on review of first EKG that patient had PACs and not atrial fibrillation -Echo: EF 65-70%, E/A reversal suggestive of diastolic dysfunction, mild MR, mild TR, mild AR SVT episode -16 beats, 180s-210 rate 11/25 overnight -20 beats SVT with HR in 160s, with PAT 6 beats overnight 11/26 -Metoprolol 25 mg daily added Hypomagnesemia, resolved -replaced with IV mag HARINDER vs CKD, improving - Cr 2.01 -> 1.53 Urostomy & Colostomy present Hx Uterine cancer Hx recent fall with rib fractures -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 Small, [facility] Dispo: pending placement Addendum - Attending - Attending Attestation Date/Time: 11/28/18 7624 I personally evaluated the patient and discussed the management with Dr. Díaz. I agree with the History, Examination, Assessment and Plan documented above with any addition or exceptions noted below. Patient here with acute encephalopathy on top of chronic dementia that was felt due to UTI. Unfortunately, urine cx was contaminated. She has improved somewhat on a 5 day course of abx for likely pathogens. She has been accepted to [facility] which was actually in process even before admission initiated by the patient's son. She is medically stable for discharge today.
[2018-11-28 08:03] VITALS: TEMP 98.2
[2018-11-28] MEDS ORDERED: Cefdinir 300 MG CAP PO SCH (09:00)
[2018-11-28] MEDS: Clopidogrel Bisulfate 75 MG TAB PO SCH (09:09)
[2018-11-28] MEDS: Amlodipine 5 MG TAB PO SCH (09:09)
[2018-11-28] MEDS: Cefdinir 300 MG CAP PO SCH (09:09)
[2018-11-28] MEDS: Aspirin 81 mg Enteric Coated Tablet PO SCH (09:09)
[2018-11-28] MEDS: Furosemide 40 MG TAB PO SCH (09:09)
[2018-11-28 12:21] VITALS: BP 134/62
--- NOTE | 2018-11-29 17:15 | EKG ---
Test Reason : ER Blood Pressure : / mmHG Vent. Rate : 082 BPM Atrial Rate : 085 BPM P-R Int : 000 ms QRS Dur : 072 ms QT Int : 352 ms P-R-T Axes : 000 024 087 degrees QTc Int : 411 ms Atrial fibrillation Nonspecific T wave abnormality , probably digitalis effect Abnormal ECG Confirmed by GUDELIA CORONADO ([id number]), business editor GAVI MUELLER ([id number]) on 11/29/2018 5:14:47 PM Referred By: Confirmed By:GUDELIA CORONADO
--- NOTE | 2018-12-01 11:54 | DIS ---
DATE OF ADMISSION: 11/24/2018 DATE OF DISCHARGE: 11/28/2018 RESIDENT: Noreen Díaz MD ADMITTING ATTENDING: Aleksander Quiroz MD CONSULT: 1. Kobe Chappell MD on 11/24/2018. 2. Cardiology. PROCEDURES: 1. Brain CT 11/24/2018, no acute intracranial process. Age-appropriate atrophy. Chronic small vessel ischemic changes of the white matter identified, small calcification of the white matter adjacent to the posterior body of the left lateral ventricle, likely representing chronic process, it may be sequelae of remote insult. 2. Chest x-ray, 11/24/2018, impression there is a new opacity in the right lung apex when compared to recent exam. Mass density or infiltrate not excluded. Upright PA and lateral views benefit for better evaluation. 3. Echocardiogram 11/25/2018, atrial fibrillation. Ejection fraction is visually estimated at 65% to 70%. EA flow reversal noted. Suggestive of diastolic dysfunction. Normal right ventricular size and function. Left atrium is normal size. Normal right atrial size. Mild mitral regurgitation is present. Structurally normal aortic valve. Mild tricuspid regurgitation. Mild pulmonic regurgitation present. PRIMARY DIAGNOSES: 1. Acute infectious encephalopathy. 2. Progressing dementia. 3. Urinary tract infection. SECONDARY DIAGNOSES: 1. History of lung cancer. 2. Hypertension. 3. Supraventricular tachycardia episodes. 4. Hypomagnesemia, resolved. 5. Acute kidney injury, improved. 6. Urostomy and colostomy history. 7. History of uterine cancer. 8. History of recent fall with rib fractures. 9. History of macular degeneration. DISCHARGE MEDICATIONS: 1. Metoprolol succinate 25 mg p.o.daily. 2. Pravastatin 80 mg p.o. at bedtime. 3. Aspirin 81 mg p.o. daily. 4. Furosemide 40 mg p.o. daily. 5. Clopidogrel 75 mg p.o. daily. 6. Amlodipine 5 mg p.o. daily. HISTORY OF PRESENT ILLNESS AND HOSPITAL COURSE: Ms. Yan is a pleasant 83-year-old female with past medical history of dementia who resides at [facility], presents to the ED by EMS. Neighbors called the police, because she was hanging off her balcony, screaming for help, because "she did not live there." HPI is unobtainable due to mental status. She is oriented to person only. She was requesting to leave because she reported she starts a new job tomorrow and lives with her mother. She had a history of uterine cancer, status post extensive surgery with placement of a urostomy and colostomy. She has a history of lung cancer with left temporal parietal peripherally enhancing mass with central necrosis seen on MRI and CT in 2013. In the ED, she was given Rocephin 1 g for UTI. She was given aspirin 325 mg for elevated troponin. IMAGIN. EKG showed what was thought to be atrial fibrillation. With no prior EKGs for reference. 2. The patient was admitted for encephalopathy secondary to infectious UTI. She was treated with ceftriaxone. Her urine grew out 3 organisms, which was likely contaminated. Cultures were not redone as patient was already on antibiotics. She was treated for 5 days and her procalcitonin remained stable. She was discharged after her 5th day of treatment in stable condition. 3. For patient's encephalopathy, the patient has had episodes of combativeness and at times refused eating and refused lab draws. Brain CT showed no acute abnormalities. 4. The patient had already been working towards getting a place at [facility] and on discharge, she was sent to [facility]. 5. Encouraged continued reorientation and keeping windows open during the daytime, so patient can sleep better at night. 6. The patient has a history of lung cancer, on chest x-ray showed right upper infiltrate was shown. Her procalcitonin profile was negative. This is likely secondary to her lung cancer. Has a history of her lung cancer having mets to her bone as well as brain. 7. There was a concern for new onset atrial fibrillation at patient's admission, she has no history of atrial fibrillation per PCP. However, she does have a history of multifocal atrial tachycardia. Her magnesium was low, which was replaced. TSH and phos were normal. Dr. Chappell was consulted on 11/24/2018. Beta-bryce metoprolol was added as the patient was also having episodes of SVT of up to 16-20 beats overnight. He reports that her 1st EKG was not atrial fibrillation. Echo showed an ejection fraction of 65% to 70% with EA reversal suggestive of diastolic dysfunction. 8. The patient had an HARINDER with a creatinine up to 2.01. On discharge, her creatinine had improved to 1.75. 9. The patient's son reported that she had recently been on a prescription of buprenorphine and tramadol for a fall with rib fractures. 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 We removed these from her home med list and did not restart them on discharge. 10. Patient was DNAR during her stay that was discussed with the son who is her medical power of assistant attorney general. DISPOSITION: Stable. DISCHARGE INSTRUCTIONS: Location: [facility]. Diet: Regular diet. Activity: As tolerated. Therapy: Wound care for sacral ulcer. Followup: With [facility], Dr. Small within 1 week, Dr. Arash Baldwin, Nurse practitioner. Job ID: [id number]
== END 2018-11-28 16:39 | DRG 690 ==
LOC: ERS 00:29 → ERHOLD 02:09 → 2NO 17:44
PROVIDERS: ADMIT Emergency Medicine; ATTEND Emergency Medicine
DX: N39.0 Urinary tract infection, site not specified (principal); N17.9 Acute kidney failure, unspecified; I47.1 Supraventricular tachycardia; G93.49 Other encephalopathy; F03.91 Unspecified dementia, unspecified severity, with behavioral disturbance; Z66 Do not resuscitate; N18.9 Chronic kidney disease, unspecified; Z93.3 Colostomy status; Z93.6 Other artificial openings of urinary tract status; E83.42 Hypomagnesemia; H35.30 Unspecified macular degeneration; Z79.82 Long term (current) use of aspirin; Z79.899 Other long term (current) drug therapy; Z85.118 Personal history of other malignant neoplasm of bronchus and lung; I48.0 Paroxysmal atrial fibrillation; Z79.02 Long term (current) use of antithrombotics/antiplatelets; Z85.44 Personal history of malignant neoplasm of other female genital organs; I12.9 Hypertensive chronic kidney disease with stage 1 through stage 4 chronic kidney disease, or unspecified chronic kidney disease; Z85.830 Personal history of malignant neoplasm of bone; Z85.841 Personal history of malignant neoplasm of brain
CPT/HCPCS: 36415; 70450; 71045; 80048; 80053; 81003; 81015; 82553; 83735; 84100; 84145; 84443; 84484; 85025; 87086; 93005; 93306; 96365; 96367; 99284; A4353; J0360; J0696; J2060; J3475; J3486; J7050

== ENCOUNTER 2018-12-26 13:25 | Emergency (ER) | payer MEDICARE, MEDICAID ==
[2018-12-26 14:09] LABS: #Eosinphils 0.3 thou/uL (0.0-0.7); #Lymphocytes 0.7 thou/uL (1.20-3.40); #Monocytes 0.4 thou/uL (0.11-0.59); #Neutrophils 3.6 thou/uL (1.40-6.50); %Basophils 0.2 % (0.0-1.0); %Eosinophils 6.8 % (0.0-10.0); %Lymphocytes 13.9 % (21.0-51.0); %Monocytes 7.7 % (0.0-10.0); %Neutrophils 71.4 % (42.0-75.0); Hemoglobin 12.5 g/dL (12.0-16.0); Mean Corpuscular HGB CONC 32.3 g/dL (32.0-36.0); Mean Corpuscular Hemoglobin 30.8 pg (27.0-31.0); Mean Corpuscular Volume 95.4 fL (78.0-98.0); Mean Platelet Volume 8.2 fL (7.4-10.4); Platelet Count 172 thou/uL (130-400); RBC Distribution Width 13.4 % (11.5-14.5); Red Blood Cell (RBC) Count 4.04 mill/uL (4.20-5.40); White Blood Cell (WBC) Count 5.1 thou/uL (4.8-10.8)
[2018-12-26 14:22] LABS: ALT (SGPT) 7 U/L (8-55); AST (SGOT) 15 U/L (5-34); Albumin 4.1 g/dL (3.4-4.8); Alkaline Phosphatase 103 U/L (40-150); Anion Gap 15 mmol/L (10-20); BUN (Urea Nitrogen) 21 mg/dL (9.8-20.1); Bilirubin, Total 0.4 mg/dL (0.2-1.2); Calc. Creatinine Clearance 0 mL/min (70-130); Calcium 9.2 mg/dL (7.8-10.44); Carbon Dioxide 23 mmol/L (23-31); Chloride 108 mmol/L (98-107); Estimated GFR-MDRD 28; Globulin 2.9 g/dL (2.4-3.5); Glucose 90 mg/dL (83-110); Sodium 141 mmol/L (136-145)
--- NOTE | 2018-12-26 14:22 | CT ---
CT Brain WO Con: 12/26/2018 1:50 PM CLINICAL HISTORY: Left side weakness. COMPARISON: 11/24/2018 FINDINGS: Hemorrhage: None. Ventricular system: Stable prominence. Cerebral parenchyma: Microvascular ischemic disease Midline shift: None. Mass: No mass effect. Calvarium: Normal. Visualized Paranasal sinuses: Clear. Absence of unga intraocular lenses. IMPRESSION: No acute intracranial hemorrhage or mass effect.
--- NOTE | 2018-12-26 14:26 | RAD ---
Exam: Chest one view HISTORY:Weakness Comparison: 11/24/2018 FINDINGS: Lungs: Stable spiculated density of the right upper lung zone. Lungs are hyperinflated with interstit ial prominence. Cardiac silhouette:Cardiac silhouette remains enlarged. There is ectasia and tortuosity of the calcif ied thoracic aorta Pulmonary vessels: Prominence of central pulmonary vasculature Pleural Spaces: Mild pleural-based densities at each inferior hemithorax Pneumothorax: None Osseous abnormalities: None of acuity. IMPRESSION: Persistent spiculated density of the right upper lung zone. As previously recommended, 2 view chest is recommended to further evaluate. CHF
[2018-12-26 14:42] LABS: Bilirubin Negative (Negative); Blood, Urine Negative (Negative); Clarity CLEAR (Clear); Glucose, Urine (Dipstick) Negative (Negative); Leukocyte Negative (Negative); Nitrite Positive (Negative); Protein, Urine (Dipstick) 30 mg/dL (Neg-Trace); Specific Gravity, Urine 1.006 (1.002-1.036); Urobilinogen 0.2 mg/dL (0.2-1.0); pH, Urine 7.5 (5.0-9.0)
[2018-12-26 14:44] LABS: Bacteria/HPF 1+ HPF (None Seen); Hyaline Casts/LPF 0-3 HYALINE CAST LPF (0-3 Hyaline); RBC/HPF 0-3 HPF (0-3); Squamous Epithelial 0-3 HPF (0-3)
[2018-12-26 14:57] LABS: Renal Epithelial None Seen HPF (0-3); Transitional Epithelial NONE SEEN HPF (0-3)
--- NOTE | 2019-01-01 15:25 | EKG ---
Test Reason : HTN Blood Pressure : / mmHG Vent. Rate : 074 BPM Atrial Rate : 074 BPM P-R Int : 146 ms QRS Dur : 074 ms QT Int : 378 ms P-R-T Axes : 041 020 033 degrees QTc Int : 419 ms Normal sinus rhythm with sinus arrhythmia Normal ECG Confirmed by SUNDAY SESAY D.O. ([id number]), image editor GAVI MUELLER ([id number]) on 01/01/2019 3:24:56 PM Referred By: Confirmed By:SUNDAY SESAY D.O.
== END 2018-12-26 16:59 | disposition home or self-care (01) ==
LOC: ERS 13:25
DX: N30.00 Acute cystitis without hematuria (principal); I10 Essential (primary) hypertension; I48.91 Unspecified atrial fibrillation; Z79.82 Long term (current) use of aspirin; Z79.899 Other long term (current) drug therapy
CPT/HCPCS: 70450; 71045; 80053; 81003; 81015; 85025; 93005

== ENCOUNTER 2019-02-07 21:13 | Emergency (ER) | payer MEDICARE, MEDICAID ==
--- NOTE | 2019-02-07 21:41 | RAD ---
EXAM: 3 views of the left hand COMPARISON: None HISTORY: Hand pain after fall FINDINGS: 3 views of the left hand shows no evidence of acute fracture or dislocation. Joint space na rrowing is seen in the interphalangeal joints of the fingers and in the first CMC joint. Hardware is seen in the distal radius from prior surgery. No soft tissue swelling is present. IMPRESSION: No evidence of acute osseous abnormality.
== END 2019-02-07 22:35 | disposition home or self-care (01) ==
LOC: ERS 21:13
DX: S60.222A Contusion of left hand, initial encounter (principal); I10 Essential (primary) hypertension; E78.5 Hyperlipidemia, unspecified; I48.91 Unspecified atrial fibrillation; F03.90 Unspecified dementia, unspecified severity, without behavioral disturbance, psychotic disturbance, mood disturbance, and anxiety; Z79.899 Other long term (current) drug therapy; Z79.82 Long term (current) use of aspirin; W19.XXXA Unspecified fall, initial encounter

== ENCOUNTER 2019-11-07 14:31 | Inpatient (IN) | payer MEDICARE, MEDICAID ==
--- NOTE | 2019-11-07 15:03 | RAD ---
Portable chest: HISTORY: Cough COMPARISON: 12/26/2018 FINDINGS:New confluent infiltrate in the right perihilar region extending in the right lower lung. Bi lateral effusions. Density in the right upper lobe again noted. There is increased apical pleural thickening today. Old rib fractures again noted. Left lung appears clear. IMPRESSION: Right lung infiltrate. Bilateral effusions. Mass density in the right upper lung with apical pleural thickening again noted.
[2019-11-07 15:12] LABS: Bacteria/HPF 3+ HPF (None Seen); Bilirubin Negative (Negative); Blood, Urine Trace (Negative); Clarity Clear (Clear); Glucose, Urine (Dipstick) Normal (Negative); Leukocyte 75 Leu/uL (Negative); Nitrite Negative (Negative); Protein, Urine (Dipstick) 100 mg/dL (Neg-Trace); RBC/HPF 0-3 HPF (0-3); Squamous Epithelial 0-3 HPF (0-3); Urobilinogen Normal mg/dL (Less than 2); WBC/HPF 21-50 HPF (0-3)
[2019-11-07 15:21] LABS: Hemoglobin 12.9 g/dL (12.0-16.0); Mean Corpuscular HGB CONC 32.6 g/dL (32.0-36.0); Mean Corpuscular Hemoglobin 30.9 pg (27.0-31.0); Mean Corpuscular Volume 94.7 fL (78.0-98.0); Mean Platelet Volume 9.1 fL (7.4-10.4); Platelet Count 182 thou/uL (130-400); RBC Distribution Width 13.9 % (11.5-14.5); Red Blood Cell (RBC) Count 4.18 mill/uL (4.20-5.40); White Blood Cell (WBC) Count 6.4 thou/uL (4.8-10.8)
[2019-11-07 15:25] LABS: Renal Epithelial 0-3 HPF (None Seen); Transitional Epithelial 0-3 HPF (None Seen)
[2019-11-07 15:33] LABS: ALT (SGPT) 14 U/L (8-55); AST (SGOT) 21 U/L (5-34); Alkaline Phosphatase 105 U/L (40-110); Anion Gap 18 mmol/L (10-20); BUN (Urea Nitrogen) 29 mg/dL (9.8-20.1); Bilirubin, Total 0.4 mg/dL (0.2-1.2); Calc. Creatinine Clearance 0 mL/min (70-130); Calcium 9.1 mg/dL (7.8-10.44); Carbon Dioxide 20 mmol/L (23-31); Chloride 102 mmol/L (98-107); Estimated GFR-MDRD 25; Globulin 3.7 g/dL (2.4-3.5); Glucose 81 mg/dL (83-110); Potassium 4.4 mmol/L (3.5-5.1); Protein, Total 7.7 g/dL (6.0-8.3); Sodium 136 mmol/L (136-145)
[2019-11-07] MEDS ORDERED: Cefepime 1 GM VIAL ONE (15:37)
[2019-11-07 15:41] LABS: Band 20 % (5-11); Eosinophils 3 % (0-10); Lymphocytes 5 % (21-51); MDiff Complete? YES; Monocytes 11 % (0-10); Neutrophil 60 % (42-75); Ovalocytes SLIGHT = 2-5 cells (100X) (0-1/hpf); Platelet Morphology Comment Appears Adequate; Polychromasia SLIGHT = 2-3 cells (100X) (0-2/hpf); Reactive Lymphocytes 1 % (0-10)
--- NOTE | 2019-11-07 17:16 | CT ---
Exam: CT brain PROVIDED CLINICAL HISTORY: Altered mental status COMPARISON: 12/26/2018 FINDINGS: The ventricular system is normal in size and morphology. No evidence for intracranial hemorrhage or mass effect. Bilateral maxillary sinus opacification with air-fluid levels. Partial opacification of ethmoid air cells and sphenoid sinus. Partial opacification of frontal sinus. Chronic microvascula r ischemic changes involving the cerebral white matter are redemonstrated. IMPRESSION: 1. No evidence for intracranial hemorrhage or mass effect. 2. Paranasal sinus mucosal disease with maxillary sinus air-fluid levels noted. Correlate with concer ns for acute sinusitis.
[2019-11-07] MEDS ORDERED: Bisacodyl 5 MG TAB PO PRN (17:51)
[2019-11-07] MEDS ORDERED: Acetaminophen 325 MG TAB PO PRN (17:51)
[2019-11-07] MEDS ORDERED: Azithromycin 500 MG in Sodium Chloride 0.9% 250 ML 250 ML IVPB SCH (18:00)
[2019-11-07 18:18] VITALS: BMI 17.6
[2019-11-07] MEDS: Sodium Chloride 0.9% 1,000 ML IV SCH (20:00)
[2019-11-07] MEDS: Heparin 5,000 UNITS/ML VIAL SC SCH (20:08)
[2019-11-07] MEDS: Azithromycin 500 MG in Sodium Chloride 0.9% 250 ML 250 ML IVPB SCH (20:14)
[2019-11-08] MEDS: Cefepime 1 GM in Sodium Chloride 0.9% 100 ML IVPB SCH ×2 (03:47→15:20)
--- NOTE | 2019-11-08 05:04 | HP ---
PRIMARY CARE PROVIDER: Dr. Garduno. CHIEF COMPLAINT: Cough. HISTORY OF PRESENT ILLNESS: Ms. Yan is a pleasant 84-year-old lady, who was seen at [facility] on November 07, 2019. She is a resident at [facility]. The patient is unable to provide any significant history. Collateral history was obtained from discussion with emergency room physician, discussion with the patient's son over the telephone and review of medical records. She was hospitalized at this facility in November 2018 for acute infectious encephalopathy, progressive dementia, and urinary tract infection. The patient's son reports that she has a history of lung cancer with brain metastases. At baseline, she has fluctuating levels of consciousness. He reports that 3 days ago, he saw that she was congested and coughing. alf records also indicate possible urinary tract infection. She was brought to the emergency room for evaluation of cough. REVIEW OF SYSTEMS: Could not be completed secondary to the patient's cognitive status. PAST MEDICAL HISTORY: Encephalopathy, insomnia, osteoarthritis, brain metastases, uterine cancer, lung cancer, dyslipidemia, hypertension, atrial fibrillation. PAST SURGICAL HISTORY: Ileostomy, colostomy. PSYCHIATRIC HISTORY: Dementia. SOCIAL HISTORY: No history of tobacco use, alcohol use, or recreational drug use. FAMILY HISTORY: Unable to obtain. CODE STATUS: I discussed her code status. She is DNAR according to her son. ALLERGIES: HYDROCODONE AND IODINE. CURRENT MEDICATIONS: 1. Amlodipine 5 mg daily. 2. Aspirin 81 mg daily. 3. Plavix 75 mg daily. 4. Lasix 40 mg daily. 5. Pravastatin 80 mg at bedtime. 6. Metoprolol succinate 25 mg daily. 7. Remeron 15 mg daily. 8. Zoloft 50 mg daily. PHYSICAL EXAMINATION: GENERAL: On examination, Ms. Yan is awake and alert, not in acute distress. VITAL SIGNS: Blood pressure is 134/83, pulse 92, respiratory rate 22, and oxygen saturation 94% on 2 L of oxygen. She is afebrile. EYES: No scleral icterus, no conjunctival pallor. ENT: Dry mucosal membranes, pharyngeal erythema present, no exudates. NECK: Supple, nontender, trachea is midline. RESPIRATORY: Accessory muscles of breathing are not active. Chest wall movements are symmetric bilaterally. LUNG: Right basal crackles. CARDIOVASCULAR: S1 and S2 are heard, regular. Peripheral pulses palpable. ABDOMEN: Soft, nontender. She has colostomy and nephrostomy. NEUROLOGIC: Cranial nerves 2 through 12 are intact. MUSCULOSKELETAL: The patient is moving all 4 extremities. SKIN: No rashes. LYMPHATIC: No cervical lymphadenopathy. PSYCHIATRIC: Normal mood, normal affect, the patient is oriented to person only, not to place or time. LABORATORY DATA: Ms. Yan's labs and investigations were reviewed. Chest x-ray shows right basilar infiltrates. Noncontrast CT scan of the brain did not show any acute changes. She also has bilateral effusions and mass density in the right upper lung on chest x-ray. She has normal white count, but elevated bands at 20%, normal hemoglobin, normal platelet count, normal sodium, normal potassium, elevated blood urea nitrogen of 29, elevated creatinine of 1.95, creatinine was 1.75 on December 26, 2018, unremarkable LFTs, normal lactic acid and normal BNP. Urinalysis is positive for leukocyte esterase. ASSESSMENT AND PLAN: Ms. Yan is a pleasant 84-year-old lady, who was seen at [facility] on November 07, 2019. Her problem list includes: 1. Acute metabolic encephalopathy: Ms. Yan is presenting with acute metabolic encephalopathy and a baseline of dementia, most likely secondary to pneumonia and urinary tract infection. She will be admitted to the hospital for further management. 2. Pneumonia: She has evidence of right lower lobe pneumonia. This is most likely secondary to gram-negative rods. She has been started on cefepime, which I will continue. I will also add azithromycin to cover for atypicals. 3. Urinary tract infection: Continue cefepime, follow urine cultures. 4. Hypertension: Monitor vital signs, titrate antihypertensives as needed. 5. Dyslipidemia: Continue statin. 6. Protein calorie malnutrition, severe: Consult dietitian for opinion and help with management. Plan of care was discussed with the patient's son in detail. Many thanks for allowing me to participate in your patient's care. Please feel free to contact me with any questions or concerns. LEVEL OF RISK: Moderate. LEVEL OF COMPLEXITY: Moderate. Job ID: [id number]
[2019-11-08 05:40] LABS: #Eosinphils 0.4 thou/uL (0.0-0.7); #Lymphocytes 0.7 thou/uL (1.20-3.40); #Monocytes 0.8 thou/uL (0.11-0.59); %Basophils 0.5 % (0.0-1.0); %Eosinophils 5.4 % (0.0-10.0); %Lymphocytes 9.7 % (21.0-51.0); %Monocytes 11.7 % (0.0-10.0); %Neutrophils 72.8 % (42.0-75.0); Hemoglobin 10.8 g/dL (12.0-16.0); Mean Corpuscular HGB CONC 32.8 g/dL (32.0-36.0); Mean Corpuscular Hemoglobin 31.3 pg (27.0-31.0); Mean Corpuscular Volume 95.5 fL (78.0-98.0); Mean Platelet Volume 9.5 fL (7.4-10.4); Platelet Count 184 thou/uL (130-400); RBC Distribution Width 14.1 % (11.5-14.5); Red Blood Cell (RBC) Count 3.45 mill/uL (4.20-5.40); White Blood Cell (WBC) Count 6.9 thou/uL (4.8-10.8)
[2019-11-08 06:15] LABS: Anion Gap 14 mmol/L (10-20); BUN (Urea Nitrogen) 33 mg/dL (9.8-20.1); Calc. Creatinine Clearance 16 mL/min (70-130); Carbon Dioxide 17 mmol/L (23-31); Chloride 109 mmol/L (98-107); Estimated GFR-MDRD 28; Glucose 89 mg/dL (83-110); Potassium 4.2 mmol/L (3.5-5.1); Sodium 136 mmol/L (136-145)
[2019-11-08] MEDS: Heparin 5,000 UNITS/ML VIAL SC SCH ×3 (08:42→21:40)
[2019-11-08] MEDS ORDERED: FLU VACC TS2019-20(65YR UP)/PF 180 MCG/0.5 ML SYRINGE IM ONE (09:00)
[2019-11-08] MEDS ORDERED: Prevnar 13-Val Conj/PF 0.5 ML SYRINGE IM ONE (09:00)
--- NOTE | 2019-11-08 09:10 | PDOC.HOSPP ---
- Subjective Encounter Date: 11/08/19 Encounter Time: 10:40 Subjective: Patient with continued cough, congestion. No other complaints. Not oriented. - Objective Vital Signs & Weight: Vital Signs (12 hours) Temp Pulse Resp BP Pulse Ox 11/08/19 08:00 97.8 F 85 18 120/74 91 L 11/08/19 03:54 97.9 F 87 18 112/73 94 L 11/08/19 00:21 97.9 F 97 20 100/58 L 95 Weight Weight 90 lb 3.2 oz I&O: 11/07/19 11/08/19 11/09/19 06:59 06:59 06:59 Intake Total 850 Output Total 770 Balance 80 Result Diagrams: 11/08/19 05:12 11/08/19 05:12 Hospitalist ROS - Review of Systems ROS unobtainable: due to mental status - Medication Medications: Active Medications Generic Name Dose Route Start Last Admin Trade Name Freq PRN Reason Stop Dose Admin Heparin Sodium (Porcine) 5,000 units 11/07/19 21:00 11/08/19 08:42 Heparin SC Not Given TID DAVE Cefepime HCl 1 gm/ Sodium 100 mls @ 200 mls/hr 11/08/19 04:00 11/08/19 03:47 Chloride IVPB 100 mls 0400,1600 DAVE Administration Sodium Chloride 1,000 mls @ 50 mls/hr 11/07/19 18:15 11/07/19 20:00 Normal Saline 0.9% IV 1,000 mls .Q20H DAVE Administration Azithromycin 500 mg/ Sodium 250 mls @ 250 mls/hr 11/07/19 20:00 11/07/19 20: 14 Chloride IVPB 250 mls Q24HR DAVE Administration - Exam General Appearance: NAD, awake alert ENT: moist mucosa Heart: RRR, no murmur, no gallops, no rubs Respiratory: CTAB, no wheezes, no rales, no ronchi Gastrointestinal: soft, non-tender, non-distended, normal bowel sounds Gastrointestinal - other findings: urostomy and colostomy in place Psychiatric: normal affect, not oriented Hosp A/P (1) Acute metabolic encephalopathy Code(s): G93.41 - METABOLIC ENCEPHALOPATHY Status: Acute (2) UTI (urinary tract infection) Status: Acute Qualifiers: Urinary tract infection type: acute cystitis (3) Pneumonia Code(s): J18.9 - PNEUMONIA, UNSPECIFIED ORGANISM Status: Acute Qualifiers: Laterality: right Lung location: lower lobe of lung (4) Chronic renal failure, stage 3 (moderate) Code(s): N18.3 - CHRONIC KIDNEY DISEASE, STAGE 3 (MODERATE) Status: Chronic (5) Atrial fibrillation Code(s): I48.91 - UNSPECIFIED ATRIAL FIBRILLATION Status: Acute (6) Dementia Code(s): F03.90 - UNSPECIFIED DEMENTIA WITHOUT BEHAVIORAL DISTURBANCE Status: Acute - Plan on Cefepime and Azithromycin since 11/07/2019 Resume home meds Blood and urine cultures pending DVT Proph: SCDs
[2019-11-08] MEDS ORDERED: Non-Formulary Item 1 EACH (Ipratropium/Albuterol Sulfate 3 ML) IH PRN (09:11)
[2019-11-08] MEDS ORDERED: Clopidogrel Bisulfate 75 MG TAB PO SCH (10:30)
[2019-11-08] MEDS ORDERED: Amlodipine 5 MG TAB PO SCH (10:30)
[2019-11-08] MEDS ORDERED: Aspirin 81 mg Enteric Coated Tablet PO SCH (10:30)
[2019-11-08] MEDS ORDERED: Furosemide 40 MG TAB PO SCH (10:30)
[2019-11-08] MEDS: Sodium Chloride 0.9% 1,000 ML IV SCH (15:20)
[2019-11-08] MEDS ORDERED: Non-Formulary Item 1 EACH (Pravastatin Sodium [Pravastatin Sodium] 80 MG) PO SCH (21:00)
[2019-11-08] MEDS: Mirtazapine 15 MG Soltab PO SCH (21:33)
[2019-11-08] MEDS: Azithromycin 500 MG in Sodium Chloride 0.9% 250 ML 250 ML IVPB SCH (21:33)
[2019-11-08] MEDS: Atorvastatin Calcium 20 MG TAB PO SCH (21:33)
[2019-11-08] MEDS ORDERED: Benzonatate 100 MG CAP PO PRN (22:17)
[2019-11-08] MEDS ORDERED: Diabetic Tussin 200 MG/10 ML UDCUP PO PRN (22:17)
[2019-11-09] MEDS: Cefepime 1 GM in Sodium Chloride 0.9% 100 ML IVPB SCH ×2 (05:05→15:10)
[2019-11-09] MEDS ORDERED: Non-Formulary Item 1 EACH (Sertraline Hcl [Zoloft] 50 MG) PO SCH (09:00)
[2019-11-09] MEDS: Aspirin 81 mg Enteric Coated Tablet PO SCH (09:23)
[2019-11-09] MEDS: Amlodipine 5 MG TAB PO SCH (09:24)
[2019-11-09] MEDS: Furosemide 40 MG TAB PO SCH (09:25)
[2019-11-09] MEDS: Heparin 5,000 UNITS/ML VIAL SC SCH ×3 (09:27→20:16)
[2019-11-09] MEDS: Clopidogrel Bisulfate 75 MG TAB PO SCH (09:28)
[2019-11-09] MEDS: Sodium Chloride 0.9% 1,000 ML IV SCH (17:00)
--- NOTE | 2019-11-09 20:06 | PDOC.HOSPP ---
- Subjective Encounter Date: 11/09/19 Subjective: Pleasant. Says she feels ok. Says she is breathing well. - Objective Vital Signs & Weight: Vital Signs (12 hours) Temp Pulse Resp BP BP Pulse Ox 11/09/19 19:27 97.7 F 72 18 103/64 92 L 11/09/19 09:24 77 150/78 H Weight Admit Weight 90 lb 3.2 oz Weight 90 lb 3.2 oz I&O: 11/08/19 11/09/19 11/10/19 06:59 06:59 06:59 Intake Total 850 1150 1280 Output Total 770 1150 1175 Balance 80 0 105 Result Diagrams: 11/08/19 05:12 11/08/19 05:12 Hospitalist ROS - Medication Medications: Active Medications Generic Name Dose Route Start Last Admin Trade Name Freq PRN Reason Stop Dose Admin Amlodipine Besylate 5 mg 11/09/19 09:00 11/09/19 09:24 Norvasc PO 5 mg DAILY DAVE Administration Aspirin 81 mg 11/09/19 09:00 11/09/19 09:23 Ecotrin PO 81 mg DAILY DAVE Administration Atorvastatin Calcium 20 mg 11/08/19 21:00 11/08/19 21:33 Lipitor PO 20 mg HS DAVE Administration Benzonatate 100 mg 11/08/19 22:17 11/09/19 05:05 Tessalon PO 100 mg Q6H PRN Administration Cough Clopidogrel Bisulfate 75 mg 11/09/19 09:00 11/09/19 09:28 Plavix PO 75 mg DAILY DAVE Administration Furosemide 40 mg 11/09/19 09:00 11/09/19 09:25 Lasix PO 40 mg DAILY DAVE Administration Heparin Sodium (Porcine) 5,000 units 11/07/19 21:00 11/09/19 15:09 Heparin SC 5,000 units TID DAVE Administration Cefepime HCl 1 gm/ Sodium 100 mls @ 200 mls/hr 11/08/19 04:00 11/09/19 15:10 Chloride IVPB 100 mls 0400,1600 DAVE Administration Sodium Chloride 1,000 mls @ 50 mls/hr 11/07/19 18:15 11/09/19 17:00 Normal Saline 0.9% IV 1,000 mls .Q20H DAVE Administration Azithromycin 500 mg/ Sodium 250 mls @ 250 mls/hr 11/07/19 20:00 11/08/19 21: 33 Chloride IVPB 250 mls Q24HR DAVE Administration Metoprolol Succinate 25 mg 11/09/19 09:00 11/09/19 09:28 Toprol Xl PO 25 mg DAILY DAVE Administration Mirtazapine 15 mg 11/08/19 21:00 11/08/19 21:33 Remeron Soltab PO 15 mg HS DAVE Administration Sertraline HCl 50 mg 11/09/19 09:00 11/09/19 09:24 Zoloft PO 50 mg DAILY DAVE Administration Sodium Chloride 10 ml 11/08/19 21:00 11/09/19 09:27 Flush - Normal Saline IVF Not Given Q12HR DAVE - Exam General Appearance: NAD, awake alert Heart: RRR, no murmur, no gallops, no rubs, normal peripheral pulses Respiratory: CTAB, no wheezes, no ronchi, normal chest expansion, no tachypnea, normal percussion, rales (Right base.) Gastrointestinal: soft, non-tender, non-distended, normal bowel sounds, no palpable masses, no hepatomegaly, no splenomegaly, no bruit Neurological: no focal deficits Musculoskeletal: normal tone Psychiatric: not oriented Hosp A/P (1) Acute metabolic encephalopathy Code(s): G93.41 - METABOLIC ENCEPHALOPATHY Status: Acute (2) Pneumonia Code(s): J18.9 - PNEUMONIA, UNSPECIFIED ORGANISM Status: Acute Qualifiers: Laterality: right Lung location: lower lobe of lung (3) UTI (urinary tract infection) Status: Acute Qualifiers: Urinary tract infection type: acute cystitis (4) Chronic renal failure, stage 3 (moderate) Code(s): N18.3 - CHRONIC KIDNEY DISEASE, STAGE 3 (MODERATE) Status: Chronic (5) Colostomy in place Code(s): Z93.3 - COLOSTOMY STATUS Status: Acute (6) Dementia Code(s): F03.90 - UNSPECIFIED DEMENTIA WITHOUT BEHAVIORAL DISTURBANCE Status: Acute (7) HTN (hypertension) Code(s): I10 - ESSENTIAL (PRIMARY) HYPERTENSION Status: Acute (8) HLD (hyperlipidemia) Code(s): E78.5 - HYPERLIPIDEMIA, UNSPECIFIED Status: Acute (9) Hx of cancer of lung Code(s): Z85.118 - PERSONAL HISTORY OF MALIGNANT NEOPLASM OF BRONCHUS AND LUNG Status: Acute - Plan Encephalopathy: Due to acute infections. Pneumonia: Continu cefepime, azithro. Nebs. UTI: follow up cx. covered with cefepime. Hx of Lung cancer: Persistent opacity RUL.
[2019-11-09] MEDS: Mirtazapine 15 MG Soltab PO SCH (20:15)
[2019-11-09] MEDS: Azithromycin 500 MG in Sodium Chloride 0.9% 250 ML 250 ML IVPB SCH (20:15)
[2019-11-09] MEDS: Atorvastatin Calcium 20 MG TAB PO SCH (20:16)
[2019-11-10] MEDS: Cefepime 1 GM in Sodium Chloride 0.9% 100 ML IVPB SCH ×2 (03:54→16:11)
[2019-11-10] MEDS: Clopidogrel Bisulfate 75 MG TAB PO SCH (10:05)
[2019-11-10] MEDS: Heparin 5,000 UNITS/ML VIAL SC SCH ×3 (10:06→20:38)
[2019-11-10] MEDS: Aspirin 81 mg Enteric Coated Tablet PO SCH (10:06)
[2019-11-10] MEDS: Amlodipine 5 MG TAB PO SCH (10:06)
[2019-11-10] MEDS: Furosemide 40 MG TAB PO SCH (10:06)
[2019-11-10] MEDS: Sodium Chloride 0.9% 1,000 ML IV SCH (17:43)
--- NOTE | 2019-11-10 19:56 | PDOC.HOSPP ---
- Subjective Encounter Date: 11/10/19 Subjective: Denies feeling poorly. Says she is breathing well. - Objective Vital Signs & Weight: Vital Signs (12 hours) Temp Pulse Resp BP BP Pulse Ox 11/10/19 16:49 75 16 95 11/10/19 16:00 97.7 F 72 20 133/76 95 11/10/19 11:20 97.5 F L 73 22 H 133/73 92 L 11/10/19 10:06 75 135/74 11/10/19 08:00 93 L Weight Admit Weight 90 lb 3.2 oz Weight 90 lb 3.2 oz I&O: 11/09/19 11/10/19 11/11/19 06:59 06:59 06:59 Intake Total 1150 2130 Output Total 1150 2175 Balance 0 -45 Result Diagrams: 11/08/19 05:12 11/08/19 05:12 Hospitalist ROS - Medication Medications: Active Medications Generic Name Dose Route Start Last Admin Trade Name Freq PRN Reason Stop Dose Admin Albuterol/Ipratropium 3 ml 11/08/19 09:19 11/10/19 16:49 Duoneb NEB 3 ml Q4H PRN Administration SOB Amlodipine Besylate 5 mg 11/09/19 09:00 11/10/19 10:06 Norvasc PO 5 mg DAILY DAVE Administration Aspirin 81 mg 11/09/19 09:00 11/10/19 10:06 Ecotrin PO 81 mg DAILY DAVE Administration Atorvastatin Calcium 20 mg 11/08/19 21:00 11/09/19 20:16 Lipitor PO 20 mg HS DAVE Administration Benzonatate 100 mg 11/08/19 22:17 11/09/19 05:05 Tessalon PO 100 mg Q6H PRN Administration Cough Clopidogrel Bisulfate 75 mg 11/09/19 09:00 11/10/19 10:05 Plavix PO 75 mg DAILY DAVE Administration Furosemide 40 mg 11/09/19 09:00 11/10/19 10:06 Lasix PO 40 mg DAILY DAVE Administration Heparin Sodium (Porcine) 5,000 units 11/07/19 21:00 11/10/19 16:10 Heparin SC 5,000 units TID DAVE Administration Cefepime HCl 1 gm/ Sodium 100 mls @ 200 mls/hr 11/08/19 04:00 11/10/19 16:11 Chloride IVPB 100 mls 0400,1600 DAVE Administration Sodium Chloride 1,000 mls @ 50 mls/hr 11/07/19 18:15 11/10/19 17:43 Normal Saline 0.9% IV 1,000 mls .Q20H DAVE Administration Azithromycin 500 mg/ Sodium 250 mls @ 250 mls/hr 11/07/19 20:00 11/09/19 20: 15 Chloride IVPB 250 mls Q24HR DAVE Administration Metoprolol Succinate 25 mg 11/09/19 09:00 11/10/19 10:06 Toprol Xl PO 25 mg DAILY DAVE Administration Mirtazapine 15 mg 11/08/19 21:00 11/09/19 20:15 Remeron Soltab PO 15 mg HS DAVE Administration Sertraline HCl 50 mg 11/09/19 09:00 11/10/19 10:06 Zoloft PO 50 mg DAILY DAVE Administration Sodium Chloride 10 ml 11/08/19 21:00 11/10/19 10:07 Flush - Normal Saline IVF Not Given Q12HR DAVE - Exam General Appearance: NAD, awake alert Neck: supple, symmetric, no JVD, no thyromegaly, no lymphadenopathy, no carotid bruit Heart: RRR, no murmur, no gallops, no rubs, normal peripheral pulses Respiratory: CTAB, no wheezes, no rales, no ronchi, normal chest expansion, no tachypnea, normal percussion Gastrointestinal: soft, non-tender, non-distended, normal bowel sounds, no palpable masses, no hepatomegaly, no splenomegaly, no bruit Extremities: no cyanosis, no clubbing, no edema Skin: normal turgor, no lesions, no rashes Neurological: no focal deficits Musculoskeletal: normal tone Psychiatric: not oriented Hosp A/P (1) Acute metabolic encephalopathy Code(s): G93.41 - METABOLIC ENCEPHALOPATHY Status: Acute (2) Pneumonia Code(s): J18.9 - PNEUMONIA, UNSPECIFIED ORGANISM Status: Acute Qualifiers: Laterality: right Lung location: lower lobe of lung (3) UTI (urinary tract infection) Status: Acute Qualifiers: Urinary tract infection type: acute cystitis (4) Chronic renal failure, stage 3 (moderate) Code(s): N18.3 - CHRONIC KIDNEY DISEASE, STAGE 3 (MODERATE) Status: Chronic (5) Colostomy in place Code(s): Z93.3 - COLOSTOMY STATUS Status: Acute (6) Dementia Code(s): F03.90 - UNSPECIFIED DEMENTIA WITHOUT BEHAVIORAL DISTURBANCE Status: Acute (7) HTN (hypertension) Code(s): I10 - ESSENTIAL (PRIMARY) HYPERTENSION Status: Acute (8) HLD (hyperlipidemia) Code(s): E78.5 - HYPERLIPIDEMIA, UNSPECIFIED Status: Acute (9) Hx of cancer of lung Code(s): Z85.118 - PERSONAL HISTORY OF MALIGNANT NEOPLASM OF BRONCHUS AND LUNG Status: Acute - Plan Encephalopathy: Due to acute infections. Pneumonia: Continu cefepime, azithro. Nebs. Appears to be improved. Repeat CXR in am. Respiratory failure: Continue oxygen. 88% on room air today. UTI: E. coli covered with cefepime. Hx of Lung cancer: Persistent opacity RUL.
[2019-11-10] MEDS: Azithromycin 500 MG in Sodium Chloride 0.9% 250 ML 250 ML IVPB SCH (20:37)
[2019-11-10] MEDS: Mirtazapine 15 MG Soltab PO SCH (20:38)
[2019-11-10] MEDS: Atorvastatin Calcium 20 MG TAB PO SCH (20:38)
[2019-11-11] MEDS: Cefepime 1 GM in Sodium Chloride 0.9% 100 ML IVPB SCH (04:16)
--- NOTE | 2019-11-11 07:58 | RAD ---
SINGLE VIEW CHEST: Date: 11/11/2019 COMPARISON: 11/07/2019. HISTORY: Pneumonia. FINDINGS: Single view of the chest shows normal sized cardiomediastinal silhouette with atherosclerotic calcifi cations in the aorta. Multifocal air space opacities are seen projecting over both lungs, right great er than left. There appears to be small right pleural effusion. IMPRESSION: Multifocal pneumonia. POS: C
[2019-11-11] MEDS: Heparin 5,000 UNITS/ML VIAL SC SCH (08:27)
[2019-11-11] MEDS: Furosemide 40 MG TAB PO SCH (08:28)
[2019-11-11] MEDS: Clopidogrel Bisulfate 75 MG TAB PO SCH (08:29)
[2019-11-11] MEDS: Aspirin 81 mg Enteric Coated Tablet PO SCH (08:29)
[2019-11-11] MEDS: Amlodipine 5 MG TAB PO SCH (10:40)
[2019-11-11] MEDS: Sodium Chloride 0.9% 1,000 ML IV SCH (10:42)
[2019-11-11 11:19] VITALS: BP 113/68; TEMP 97.6
--- NOTE | 2019-11-12 22:04 | PQF ---
[employer] Intelligence Intern Crystal Reports Winform Viewer IMANI TANG DAVID R MD [id number] [facility] [id number] CLINICAL DOCUMENTATION CLARIFICATION FORM: POST DISCHARGE Addendum to original discharge summary date: ____ Late entry note date: __ DATE: 11/12/19 ATTN: Estuardo To Please exercise your independent, professional judgment in responding to the clarification form. Clinical indicators are provided on the bottom of this form for your review Can you please further clarify the diagnosis of the patient? Please check appropriate box(es): [ x ] Sepsis due to: (Pna, UTI, gangrenous gall bladder, etc.) PNeumonia and UTI [ ] Localized infection without sepsis [ ] Other diagnosis [ ] Unable to determine In addition, please specify: Present on Admission (POA): [ ] Yes [ ] No [ ] Unable to determine For continuity of documentation, please document condition throughout progress notes and discharge summary. Thank You. CLINICAL INDICATORS - SIGNS / SYMPTOMS / LABS ED Provider pg.3- AMS, pneumonia, UTI H and P pg.3- she has evidence of right lower lobe pneumonia. This is most likely 2/2 gram negative rods H and P pg.2- VS BP 134/83, pulse 92, RR 22 Hospitalist PN pg.5- encephalopathy due to acute infection Urine Culture- E. coli RISK FACTORS Acute metabolic encephalopathy- H and P pg.3 Pneumonia- H and P pg.2 UTI- H and P pg.3 Protein calorie malnutrition, severe- H and P pg.3 84 years old- H and P pg.1 TREATMENTS: Chest X ray Urine Culture-microbiology Blood culture- Microbiology IV antibiotics- MAR IV fluids- MAR (This form is maintained as a part of the permanent medical record) 2014 [employer]. All Rights Reserved [email or web address] to (do) [facility] [email or web address]
--- NOTE | 2019-11-12 22:08 | PQF ---
[employer] Garment Worker Crystal Reports Winform Viewer IMANI TANG DAVID R MD [id number] [facility] [id number] CLINICAL DOCUMENTATION CLARIFICATION FORM: POST DISCHARGE Addendum to original discharge summary date: ____ Late entry note date: __ DATE: 11/12/19 ATTN: Estuardo To Please exercise your independent, professional judgment in responding to the clarification form. Clinical indicators are provided on the bottom of this form for your review Can you please further clarify the specificity of Pneumonia? Please check appropriate box(s): [x ] Empirically treating Gram Negative Pneumonia [ ] Empirically treating Anaerobic Pneumonia [ ] Pneumonia secondary to (specify organism / underlying disease) [ ] Simple Pneumonia (community acquired - nosocomial) [ ] Pneumonia of unknown etiology [ ] Other diagnosis [ ] Unable to determine In addition, please specify: Present on Admission (POA): [x ] Yes [ ] No [ ] Unable to determine For continuity of documentation, please document condition throughout progress notes and discharge summary. Thank You. CLINICAL INDICATORS - SIGNS / SYMPTOMS / LABS ED Provider pg.3- AMS, pneumonia, UTI H and P pg.3- she has evidence of right lower lobe pneumonia. This is most likely 2/2 gram negative rods H and P pg.2- VS BP 134/83, pulse 92, RR 22 Hospitalist PN pg.5- encephalopathy due to acute infection RISK FACTORS Acute metabolic encephalopathy- H and P pg.3 Pneumonia- H and P pg.2 UTI- H and P pg.3 Protein calorie malnutrition, severe- H and P pg.3 84 years old- H and P pg.1 TREATMENTS: Chest X ray Blood culture- Microbiology IV antibiotics- MAR IV fluids- MAR Albuterol 3ml Neb- MAR Oxygen Supplementation (This form is maintained as a part of the permanent medical record) 2014 [employer] All Rights Reserved [email or web address]
--- NOTE | 2019-11-13 02:36 | DIS ---
DATE OF ADMISSION: 11/07/2019 DATE OF DISCHARGE: 11/11/2019 DISCHARGE DIAGNOSES: 1. Pneumonia. 2. Acute hypoxic respiratory failure. 3. Acute metabolic encephalopathy. 4. Urinary tract infection secondary to Escherichia coli. 5. Chronic kidney disease stage 3. 6. Dementia. 7. Hypertension. 8. Hyperlipidemia. 9. History of lung cancer with residual right upper lobe scar. 10. Protein calorie malnutrition. HISTORY OF PRESENT ILLNESS: This patient is 84-year-old female with the above-mentioned history of the prior lung cancer with residual right upper lobe scar. The patient presented to the emergency department with acute encephalopathy and workup there was consistent with a right-sided pneumonia and some evidence of urinary tract infection as well. She was hypoxic requiring subsequent oxygen supplementation. HOSPITAL COURSE: The patient was admitted to the hospital and started on broad-spectrum antibiotics. Her urine culture ultimately grew E. coli and antibiotics had appropriate coverage for that. The patient had dementia and was unable to contribute significant amount of history on a daily basis. However, she appeared quite comfortable and was breathing quite comfortably, although without oxygen she did continue to have some mild hypoxia, although it did improve throughout her stay. Followup chest x-ray revealed persistent infiltrate. However, she was afebrile, had no significant leukocytosis and appeared quite comfortable and was felt to be stable for transition to oral antibiotics. During the patient's hospitalization, she was noted to have poor p.o. intake and that was of some concern. I did call the patient's son, had a long conversation with him regarding my concerns related to her poor p.o. intake. He indicated that she had never been a big eater and in that way she was relatively perpetually not eating very well and he understood that this could be a manifestation of early stages of dementia and are very difficult and challenging to manage short of something invasive like feeding tubes. I did recommend dietary supplementation for the patient and he expressed understanding. PHYSICAL EXAMINATION: VITAL SIGNS: On the day of discharge, temperature is 97.6 pulse 67, respirations 18 to 20, O2 saturations were 98% on 2 L nasal cannula, BP was 113/68. ALERT: She was awake and alert. She was pleasant, cooperative, confused. HEART: Regular rate and rhythm. LUNGS: Clear without significant wheezes or rales. ABDOMEN: Benign. Ostomy intact. EXTREMITIES: No edema. DISPOSITION: The patient is discharged back to [facility], which is her home facility. She will have unrestricted diet with Ensure and live supplements b.i.d. ACTIVITY: As tolerated. MEDICATIONS: 1. She will be on Levaquin 250 mg p.o. daily. 2. She will continue her usual home medications including pravastatin 80 mg at bedtime. 3. Aspirin 81 mg daily. 4. Lasix 40 mg daily. 5. Plavix 75 mg daily. 6. Amlodipine 5 mg daily. 7. Metoprolol 25 mg p.o. daily. 8. Mirtazapine 15 mg p.o. at bedtime. 9. Sertraline 50 mg one p.o. b.i.d. 10. DuoNebs q.4 hours as needed. FOLLOWUP: She is to follow up with the PCP at [facility]. She will maintain oxygen to keep O2 saturations at 92% or greater. She can return to the hospital at anytime should she have the need to do so. TIME SPENT: Total time in discharge activities was 40 minutes. Job ID: [id number] MTDD
== END 2019-11-11 11:49 | disposition home or self-care (01) | DRG 871 ==
LOC: ERS 14:31 → T4-A 17:06
PROVIDERS: ADMIT Internal Medicine; ATTEND Internal Medicine
DX: A41.50 Gram-negative sepsis, unspecified (principal); E43 Unspecified severe protein-calorie malnutrition; G93.41 Metabolic encephalopathy; J15.6 Pneumonia due to other Gram-negative bacteria; N30.00 Acute cystitis without hematuria; C71.9 Malignant neoplasm of brain, unspecified; C79.51 Secondary malignant neoplasm of bone; Z68.1 Body mass index [BMI] 19.9 or less, adult; A41.51 Sepsis due to Escherichia coli [E. coli]; G47.00 Insomnia, unspecified; M19.90 Unspecified osteoarthritis, unspecified site; H35.30 Unspecified macular degeneration; E78.5 Hyperlipidemia, unspecified; I12.9 Hypertensive chronic kidney disease with stage 1 through stage 4 chronic kidney disease, or unspecified chronic kidney disease; N18.3 Chronic kidney disease, stage 3 (moderate); I48.91 Unspecified atrial fibrillation; F03.90 Unspecified dementia, unspecified severity, without behavioral disturbance, psychotic disturbance, mood disturbance, and anxiety; F32.9 Major depressive disorder, single episode, unspecified; Z91.041 Radiographic dye allergy status; Z88.5 Allergy status to narcotic agent; Z79.82 Long term (current) use of aspirin; Z79.899 Other long term (current) drug therapy; Z85.42 Personal history of malignant neoplasm of other parts of uterus; Z93.3 Colostomy status; Z93.2 Ileostomy status; Z79.02 Long term (current) use of antithrombotics/antiplatelets; Z85.118 Personal history of other malignant neoplasm of bronchus and lung
CPT/HCPCS: 36415; 70450; 71045; 80048; 80053; 81003; 81015; 83605; 83880; 85025; 87040; 87077; 87086; 87186; 94640; 96361; 96365; J0456; J0692; J1644; J3490; J7050; J7620

== ENCOUNTER 2020-01-12 08:40 | Inpatient (IN) | payer MEDICARE, MEDICAID, OTHER ==
[2020-01-12 09:31] LABS: Hemoglobin 10.5 g/dL (12.0-16.0); Mean Corpuscular Volume 94.4 fL (78.0-98.0); Mean Platelet Volume 9.1 fL (7.4-10.4); Platelet Count 139 thou/uL (130-400); Red Blood Cell (RBC) Count 3.18 mill/uL (4.20-5.40)
--- NOTE | 2020-01-12 09:31 | RAD ---
Chest one view HISTORY: Dyspnea. Respiratory distress. COMPARISON: 11/11/2019. FINDINGS: Cardiac silhouette is now mostly obscured by worsening parenchymal infiltrate throughout th e right lung. Pleural density at the lateral aspect of the right apex has the appearance of loculated pleural fluid. Right upper lobe mass again demonstrated, but less conspicuous due to surrou nding parenchymal opacity.. Left lung remains well-inflated. There is calcification in the aorta. Old left rib fractures. Lobular calcifications inferior to the left coracoid process now better visualized. 3d specialist leads overlie the chest. IMPRESSION : Worsening radiographic appearance of large masslike infiltrate throughout the right lung. Right upper lobe nodule now partially obscured. Increasing loculated pleural fluid along the lateral aspect of the right apex.
[2020-01-12 09:52] LABS: Band 8 % (5-11); Eosinophils 2 % (0-10); Lymphocytes 5 % (21-51); MDiff Complete? YES; Monocytes 3 % (0-10); Neutrophil 82 % (42-75)
[2020-01-12 09:57] LABS: ALT (SGPT) 13 U/L (8-55); AST (SGOT) 23 U/L (5-34); Albumin 3.4 g/dL (3.4-4.8); Alkaline Phosphatase 94 U/L (40-110); Anion Gap 20 mmol/L (10-20); BUN (Urea Nitrogen) 57 mg/dL (9.8-20.1); Bilirubin, Total 0.4 mg/dL (0.2-1.2); Calc. Creatinine Clearance 0 mL/min (70-130); Calcium 9.2 mg/dL (7.8-10.44); Carbon Dioxide 22 mmol/L (23-31); Chloride 102 mmol/L (98-107); Estimated GFR-MDRD 22; Globulin 4.1 g/dL (2.4-3.5); Glucose 95 mg/dL (83-110); Potassium 5.1 mmol/L (3.5-5.1); Protein, Total 7.5 g/dL (6.0-8.3); Sodium 139 mmol/L (136-145)
[2020-01-12] MEDS ORDERED: Cefepime 2 GM VIAL ONE (09:59)
[2020-01-12 10:13] LABS: CKMB 1.3 ng/mL (0-6.6)
[2020-01-12] MEDS ORDERED: Vancomycin HCl 750 MG in Sodium Chloride 0.9% 250 ML 250 ML IVPB SCH (10:15)
[2020-01-12 10:18] LABS: Bacteria/HPF 4+ HPF (None Seen); Bilirubin Negative (Negative); Blood, Urine Negative (Negative); Clarity Turbid (Clear); Glucose, Urine (Dipstick) Normal (Negative); Leukocyte 500 Leu/uL (Negative); Nitrite Negative (Negative); Protein, Urine (Dipstick) 20 mg/dL (Neg-Trace); RBC/HPF 0-3 HPF (0-3); Squamous Epithelial None Seen HPF (0-3); Urobilinogen Normal mg/dL (Less than 2); WBC/HPF 21-50 HPF (0-3)
--- NOTE | 2020-01-12 10:38 | CT ---
CHEST CT WITHOUT CONTRAST: HISTORY: Shortness of breath. Failure to thrive. Brain tumor. Alert and oriented x1. COMPARISON: None. FINDINGS: Limited evaluation of the mediastinum by the lack of IV contrast. Enlarged precarinal lymph node zack ures 3.5 x 2.5 cm. Additional smaller lymph nodes are noted. Heart size is normal. No significant pericardial fluid. Scattered atherosclerosis of a nonaneurysmal aorta. Coronary calcifications are id entified. Upper abdomen: No acute abnormality. Pleural spaces: Multifocal loculated right-sided pleural fluid. Loculated fluid along the anterior ri ght pleural space measures 4.4 x 10.8 cm. Loculated fluid along the posterior right pleural space measures 4.5 x 5.0 cm. Additional smaller foci of loculated pleural fluid is noted. No significant le ft-sided loculated pleural fluid. A small amount of layering fluid is noted in the posterior left pleural space Trachea and central bronchi: Patent. Lungs: Multiple suspicious masses in the lung parenchyma. Lobulated mass in the right upper lobe zack ures 1.3 x 2.2 cm. Spiculated mass in the right upper lobe measures 1.7 x 1.7 cm. Adjacent consolidation of the lung parenchyma is noted. There is increased soft tissue density in the right hi lar region with narrowing of the right mainstem bronchus as well as the right upper lobe bronchus. Consolidation in the right lower lobe may represent post obstructive atelectasis along with passive a telectasis from adjacent pleural fluid. Solid nodules in the left upper lobe, measuring 0.9 x 1.0 cm. Additional left upper lobe nodules are identified. Previous vertebroplasty in the mid thoracic sp ine. IMPRESSION: 1. Multifocal loculated fluid in the right pleural space. 2. Right hilar mass with narrowing of the right upper lobe and right mainstem bronchi. Consolidation of the right lower lobe may represent a component of postobstructive atelectasis along with passive atelectasis. 3. Multiple solid nodules in the left and right lung, worrisome for malignancy/metastases until prove n otherwise. Enlargement of the lymph node is presumed to represent metastatic disease. Transcribed Date/Time: 01/12/2020 10:59 AM
[2020-01-12] MEDS ORDERED: Bisacodyl 10 MG SUPP PR PRN (14:31)
[2020-01-12] MEDS ORDERED: Senokot S 8.6-50 MG TAB PO PRN (14:31)
[2020-01-12] MEDS ORDERED: Ondansetron PF 4 MG/2 ML Vial IVP PRN (14:31)
[2020-01-12] MEDS ORDERED: Guaifenesin DM 100-10/5 ML UDCUP PO PRN (14:31)
--- NOTE | 2020-01-12 15:16 | HP ---
REASON FOR ADMISSION: Progressive lung cancer with effusion, acute respiratory failure with hypoxia. HISTORY OF PRESENTING ILLNESS: Please note majority of this history is obtained by talking to ER physician and patient's son, Mr. Pozo over the phone as the patient is not fully oriented. She is a resident of [facility] and was transferred for shortness of breath. 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 She was diagnosed with this in 2012. Actually, the son is also not so sure when exactly they were diagnosed, but on prior [facility] on [facility], the patient has had a prior MRI brain in 2013, which shows a temporoparietal mass. She follows up with Dr. Tanja Rose at [facility]. It is unclear if the patient has had any recent followups. Here in the ER, she was placed on non-rebreather and is saturating well. She also received nebulizations and was tested for COVID-19. PAST MEDICAL AND SURGICAL HISTORY: Hypertension; dementia; dyslipidemia; depression; history of cervical cancer; history of lung cancer with metastasis to brain from at least 2012, it is unclear when the exact diagnosis was; history of CKD; ileostomy; colostomy; history of pemphigus vulgaris; history of TIA; protein calorie malnutrition; history of prior pathological fracture per [facility] records; chronic atrial fibrillation. CURRENT MEDICATIONS: The patient is on, 1. Multivitamin one tablet once daily. 2. Zinc sulfate one tab daily. 3. twice daily. 4. Zoloft 100 mg daily. 5. Toprol-XL 25 mg daily. 6. Aspirin 81 mg daily. 7. Norvasc 5 mg daily. 8. Lasix 40 mg daily. 9. Plavix 75 mg daily. 10. Remeron 15 mg p.o. at bedtime. 11. Pravastatin 80 mg p.o. at bedtime. 12. DuoNeb q.4 hourly p.r.n. PERSONAL HISTORY: The patient quit smoking many years ago. She is currently a resident of [facility]. Does not abuse alcohol or drugs. FAMILY HISTORY: Per records from Dr. Garduno's office, both parents are . Father had heart disease. Mother had hypertension. CODE STATUS: Do not attempt to resuscitate. This was confirmed with the patient's son and power of prosecuting attorney, Mr. Pozo, number to reach him is [phone]. REVIEW OF SYSTEMS: Cannot be obtained as the patient is not oriented. PHYSICAL EXAMINATION: GENERAL: The patient is an 84-year-old female, who is currently in mild respiratory distress. VITAL SIGNS: Blood pressure 130/86, pulse 86 per minute, respiratory rate 22 per minute, temperature 97.7 degrees Fahrenheit, saturating 97% on 2 L nasal cannula. NECK: Supple. No elevated JVD. HEENT: Eyes; extraocular muscles intact. Pupils reacting to light. Oral cavity, mucous membranes are dry. No exudates or congestion. CARDIOVASCULAR: S1 and S2 heard. Regular rhythm. RESPIRATORY: Air entry is decreased in the right thorax, scattered rhonchi plus. ABDOMEN: Soft. Bowel sounds heard. No tenderness, rigidity, or guarding. EXTREMITIES: No peripheral edema or calf tenderness. VASCULAR SYSTEM: Peripheral pulses 1+ bilateral. No ischemic ulcerations or gangrene. CENTRAL NERVOUS SYSTEM: An accurate neurologic exam is difficult due to the patient's poor cognitive function at present. No gross localizing sign seen. PSYCHIATRIC: Cannot be assessed as the patient is not oriented. LABORATORY DATA: CT chest done shows multifocal loculated fluid in the right pleural space. There is right hilar mass with narrowing of the right upper lobe and right mainstem bronchi. The patient likely has postobstructive atelectasis in the right lower lobe. Multiple solid nodules in the left and right lung, worrisome for malignancy/metastasis. White count of 5, H and H 10 and 30, platelet count 139 , MCV is 94 with 82% neutrophils. Serum bicarb 22, BUN 57, creatinine 2.1. Liver enzymes within normal limits. Albumin is 3.4. Troponin I 0.04. BNP 65, CK-MB 1.3. CLINICAL IMPRESSION AND PLAN: The patient will be admitted to telemetry on COVID unit as she has been tested for COVID. She likely has progressive lung cancer with almost complete opacification of right lung and postobstructive atelectasis as well. I have spoken to Sánchez, the patient's son. He would want his mom to be under hospice once she is sent back to [facility] likely tomorrow. If the patient turns out COVID negative, we will obtain Case Management consultation to set up hospice. The patient has both Medicare and Medicaid per son to set up hospice. We will continue her aspirin, Plavix, Norvasc, Remeron, Solu-Medrol 40 mg IV q.6 hourly, Pravachol as before. Empiric doxycycline will be placed. All other antibiotics will be discontinued which were initiated in the ER. The patient's overall prognosis is very poor with progressive cancer. The patient in fact has had at least 2 different varieties of cancer. She likely has advanced dementia and progressive decline in physical condition as well and is cachectic clinically as well. Son is aware of all of this. Job ID: [id number] MTDD
[2020-01-12 17:21] LABS: SARS-CoV-2 MS2 Positive; SARS-CoV-2 N Gene Negative; SARS-CoV-2 S Gene Negative; SARS-CoV-2 orf1ab Negative
[2020-01-12] MEDS: methylPREDNISolone Sod Succ 40 MG VIAL IVP SCH ×2 (18:06→23:44)
[2020-01-12] MEDS ORDERED: Mirtazapine 15 MG Soltab PO SCH (21:00)
[2020-01-12] MEDS ORDERED: Atorvastatin Calcium 20 MG TAB PO SCH (21:00)
[2020-01-12] MEDS: Doxycycline 100 MG CAP PO SCH (22:22)
[2020-01-13] MEDS: Acetaminophen 325 MG TAB PO PRN ×2 (01:27→05:25)
[2020-01-13 05:16] LABS: #Lymphocytes 0.2 thou/uL (1.20-3.40); #Neutrophils 6.1 thou/uL (1.40-6.50); %Eosinophils 0.5 % (0.0-10.0); %Lymphocytes 2.6 % (21.0-51.0); %Monocytes 0.6 % (0.0-10.0); %Neutrophils 96.2 % (42.0-75.0); Hemoglobin 9.9 g/dL (12.0-16.0); Mean Corpuscular HGB CONC 30.4 g/dL (32.0-36.0); Mean Corpuscular Volume 95.6 fL (78.0-98.0); Mean Platelet Volume 8.5 fL (7.4-10.4); Platelet Count 167 thou/uL (130-400); RBC Distribution Width 14.2 % (11.5-14.5); Red Blood Cell (RBC) Count 3.41 mill/uL (4.20-5.40); White Blood Cell (WBC) Count 6.3 thou/uL (4.8-10.8)
[2020-01-13] MEDS: methylPREDNISolone Sod Succ 40 MG VIAL IVP SCH (05:29)
[2020-01-13 05:35] LABS: Anion Gap 20 mmol/L (10-20); BUN (Urea Nitrogen) 60 mg/dL (9.8-20.1); Calc. Creatinine Clearance 14 mL/min (70-130); Carbon Dioxide 18 mmol/L (23-31); Chloride 104 mmol/L (98-107); Estimated GFR-MDRD 21; Glucose 122 mg/dL (83-110); Potassium 4.8 mmol/L (3.5-5.1); Sodium 137 mmol/L (136-145)
[2020-01-13] MEDS ORDERED: Dextrose 5% in Water 1,000 ML IV SCH (08:30)
[2020-01-13] MEDS ORDERED: predniSONE 20 MG TAB PO SCH (08:30)
[2020-01-13] MEDS ORDERED: Amlodipine 5 MG TAB PO SCH (09:00)
[2020-01-13] MEDS ORDERED: Clopidogrel Bisulfate 75 MG TAB PO SCH (09:00)
[2020-01-13] MEDS ORDERED: Aspirin 81 mg Enteric Coated Tablet PO SCH (09:00)
[2020-01-13] MEDS ORDERED: Enoxaparin Sodium 30 MG/0.3 ML SYRINGE SC SCH (09:00)
[2020-01-13] MEDS: Doxycycline 100 MG CAP PO SCH (09:16)
[2020-01-13] MEDS ORDERED: Dextrose 5% in Water 250 ML IVPB SCH (10:30)
--- NOTE | 2020-01-13 11:27 | PDOC.HOSPP ---
- Subjective Encounter Date: 01/13/20 Encounter Time: 10:15 Subjective: awake, not oriented but responds well to verbal questions not in distress eating around 30% of her meals - Objective Vital Signs & Weight: Vital Signs (12 hours) Temp Pulse Resp BP BP Pulse Ox 01/13/20 09:16 96 01/13/20 07:25 97.8 F 94 16 86/52 L 96 01/13/20 07:06 82 16 98 01/13/20 03:30 98.2 F 98 15 90/52 L 97 01/13/20 00:52 94 L 01/13/20 00:45 90 16 94 L Weight Weight 103 lb 15.873 oz I&O: 01/12/20 01/13/20 01/14/20 06:59 06:59 06:59 Intake Total 116 Output Total 175 Balance -59 Result Diagrams: 01/13/20 04:36 01/13/20 04:36 Hospitalist ROS - Medication Medications: Active Medications Generic Name Dose Route Start Last Admin Trade Name Freq PRN Reason Stop Dose Admin Acetaminophen 650 mg 01/12/20 14:31 01/13/20 05:25 Tylenol PO 650 mg Q4H PRN Administration Headache/Fever/Mild Pain (1-3) Albuterol/Ipratropium 3 ml 01/12/20 19:00 01/13/20 07:06 Duoneb NEB 3 ml [id number] DAVE Administration Amlodipine Besylate 5 mg 01/13/20 09:00 01/13/20 09:16 Norvasc PO Not Given DAILY DAVE Aspirin 81 mg 01/13/20 09:00 01/13/20 09:16 Ecotrin PO 81 mg DAILY DAVE Administration Atorvastatin Calcium 20 mg 01/12/20 21:00 01/12/20 22:22 Lipitor PO 20 mg HS DAVE Administration Clopidogrel Bisulfate 75 mg 01/13/20 09:00 01/13/20 09:16 Plavix PO 75 mg DAILY DAVE Administration Enoxaparin Sodium 30 mg 01/13/20 09:00 01/13/20 09:16 Lovenox SC 30 mg 0900 DAVE Administration Dextrose/Water 1,000 mls @ 100 mls/hr 01/13/20 08:30 01/13/20 09:57 D5w IV 1,000 mls .Q10H DAVE Administration Dextrose/Water 250 mls @ 999 mls/hr 01/13/20 10:30 01/13/20 11:00 D5w IVPB 01/13/20 12:00 250 mls NOW DAEV Administration Mirtazapine 15 mg 01/12/20 21:00 01/12/20 22:23 Remeron Soltab PO 15 mg HS DAVE Administration Sertraline HCl 50 mg 01/13/20 09:00 01/13/20 09:16 Zoloft PO 50 mg DAILY DAVE Administration - Exam General Appearance: awake alert Eye: PERRL, anicteric sclera ENT: no oropharyngeal lesions, dry oral mucosa Neck: supple, no JVD Heart: RRR, murmur present Respiratory: no wheezes Respiratory - other findings: decreased air entry right thorax Gastrointestinal: soft, non-tender, non-distended, normal bowel sounds Extremities: no cyanosis, no edema Neurological: cranial nerve grossly intact, no focal deficits Hosp A/P (1) Lung cancer Code(s): C34.90 - MALIGNANT NEOPLASM OF UNSP PART OF UNSP BRONCHUS OR LUNG Status: Acute Qualifiers: Laterality: right Lung location: overlapping sites Qualified Code(s): C34.81 - Malignant neoplasm of overlapping sites of right bronchus and lung (2) HARINDER (acute kidney injury) Code(s): N17.9 - ACUTE KIDNEY FAILURE, UNSPECIFIED Status: Acute (3) Acute respiratory failure with hypoxia Code(s): J96.01 - ACUTE RESPIRATORY FAILURE WITH HYPOXIA Status: Acute (4) Atrial fibrillation Code(s): I48.91 - UNSPECIFIED ATRIAL FIBRILLATION Status: Chronic Qualifiers: Atrial fibrillation type: longstanding persistent Qualified Code(s): I48.11 - Longstanding persistent atrial fibrillation (5) Colostomy in place Code(s): Z93.3 - COLOSTOMY STATUS Status: Chronic (6) Dementia Code(s): F03.90 - UNSPECIFIED DEMENTIA WITHOUT BEHAVIORAL DISTURBANCE Status: Chronic Qualifiers: Dementia type: unspecified type Dementia behavioral disturbance: without behavioral disturbance Qualified Code(s): F03.90 - Unspecified dementia without behavioral disturbance (7) HLD (hyperlipidemia) Code(s): E78.5 - HYPERLIPIDEMIA, UNSPECIFIED Status: Chronic Qualifiers: Hyperlipidemia type: unspecified Qualified Code(s): E78.5 - Hyperlipidemia , unspecified (8) HTN (hypertension) Code(s): I10 - ESSENTIAL (PRIMARY) HYPERTENSION Status: Chronic Qualifiers: Hypertension type: essential hypertension Qualified Code(s): I10 - Essential (primary) hypertension (9) Presence of urostomy Code(s): Z93.6 - OTHER ARTIFICIAL OPENINGS OF URINARY TRACT STATUS Status: Chronic (10) Chronic renal failure, stage 3 (moderate) Code(s): N18.3 - CHRONIC KIDNEY DISEASE, STAGE 3 (MODERATE) Status: Chronic - Plan d/w son this am again covid 19 is -ve plan is for hospice to be set up at [facility], son agrees to current plan her prognosis is poor and is not a candidate for chemoradiation due to multiple reasons prednisone for 3 days, home O2, nebs may dc anytime to snf if hospice is set up d/w CM has harinder on top of ckd, sec to poor oral intake with progressive malignancy, age with deconditioning, son is aware that this will recur even if its corrected during this admission.
[2020-01-13 14:48] VITALS: BMI 18.4
[2020-01-13 15:36] VITALS: BP 95/48; TEMP 97.5
--- NOTE | 2020-01-13 16:08 | DIS ---
DATE OF ADMISSION: 01/12/2020 DATE OF DISCHARGE: 01/13/2020 DISCHARGE DISPOSITION: [facility] with hospice. PRIMARY DISCHARGE DIAGNOSES: Lung cancer, which is progressive; acute kidney injury due to inadequate oral intake; acute respiratory failure with hypoxia secondary to progressive lung cancer; chronic atrial fibrillation; colostomy; urostomy; hypertension; dyslipidemia; dementia. PROCEDURES DONE DURING HOSPITALIZATION: The patient had CT chest done on the day of admission, which showed multifocal loculated fluid in the right pleural space. Right hilar mass with narrowing of the right upper lobe and right mainstem bronchus. There is consolidation in the right lower lobe could be due to postobstructive atelectasis. Multiple solid nodules in the left and right lung, worrisome for malignancy/metastasis. COVID-19 PCR was negative. BUN and creatinine 60 and 2.2. Serum bicarb 18. BNP 65. White count of 6, hemoglobin and hematocrit 10 and 32 , platelet count 167 with 96% neutrophils. DISCHARGE MEDICATIONS: 1. Prednisone 10 mg p.o. daily for another 4 days. 2. Zoloft 100 mg p.o. daily. 3. Pravachol 80 mg p.o. at bedtime. 4. Multivitamin one tablet once daily. 5. Remeron 15 mg p.o. at bedtime. 6. Metoprolol succinate 25 mg extended release daily. 7. DuoNeb q.4 hourly. 8. Plavix 75 mg daily. 9. Aspirin 81 mg daily. 10. Norvasc 5 mg daily. ALLERGIES: HYDROCODONE AND IODINE. DISCHARGE PLAN: The patient to follow up with Dr. Bird in 1 week. She also has [facility] set up at the custodial. BRIEF COURSE DURING HOSPITALIZATION: The patient initially got sent over from custodial on the for shortness of breath. The patient has known history of lung cancer and was found to have had progression of the same. She has underlying dementia and is 84 years old with poor functional status as well. She was initially placed on non-rebreather and COVID-19 PCR was obtained. In view of advanced age along with progression of lung cancer, I have had discussion with her son, Mr. Lau over telephone. No further workup or measures will be done towards cancer as she is not a candidate for chemoradiation or immunotherapy due to multiple medical issues, advanced age, and underlying dementia with very poor appetite. In view of this, hospice has been set up at the custodial. Once she is accepted back, the patient will be discharged. A total of 35 minutes was spent on discharge plan. Please see a [id number] documentation for the day of discharge on [employer]. Job ID: [id number] MTDD
[2020-01-14] MEDS ORDERED: predniSONE 5 MG TAB PO SCH (08:00)
--- NOTE | 2020-01-15 14:24 | PQF ---
IMANI TANG, TANMAY CASTAÑEDA MD [id number] [facility]-[id number] CLINICAL DOCUMENTATION IMPROVEMENT CLARIFICATION FORM: ICD-10 Updated PLEASE DO AN ADDENDUM TO THE PROGRESS NOTE WITH ANY DOCUMENTATION UPDATES OR ADDITIONS AND CARRY THROUGH TO DC SUMMARY. THANK YOU. Date: 01/15/2020 ATTN: Dr. Kumar Please exercise your independent, professional judgment in responding to the clarification form. Clinical indicators are provided on the bottom of this form for your review Please check appropriate box(s): [ x ] Protein Calorie Malnutrition: [ ] Mild [ x] Moderate [ ] Severe [ ] Other Malnutrition (please specify) __ [ ] Underweight without malnutrition [ ] Cachexia [ ] Other diagnosis [ ] Unable to determine In addition, please specify: Present on Admission (POA): [ x ] Yes [ ] No [ ] Unable to determine CLINICAL INDICATORS - SIGNS / SYMPTOMS / LABS / RESULTS AND LOCATION IN MR *H&P 01/11 ([facility]): The patient's overall prognosis is very poor with progressive cancer ... progressive decline in physical condition as well and is cachetic clinically. *PN 01/12 ([facility]): * Awake, not oriented ... Eating around 30% of her meals * Has HARINDER on top of CKD, sec to poor oral intake with progressive malignancy ... *Food & Nutrition Services Assessment History 01/12: * BMI 18.4 * Current wt: 103 lb ... [place] wt: 115 lb * Nutrition Diagnosis Malnutrition related to dementia, catabolic illness .... as evidenced by severe temporalis muscle wasting and orbital fat loss suggesting severe malnutrition in the context of chronic illness. RISK FACTORS / RESULTS AND LOCATION IN MR *H&P 01/11 ([facility]): Progressive lung cancer ... advanced dementia and progressive decline in physical condition. TREATMENT / RESULTS AND LOCATION IN MR *MAR 01/12 ([facility]): D5w IV 100ml/h *Content Creation Manager Assessment 01/12: Continue liberalized regular diet to promote intake. Recommend Nepro supplement BID ... *Regular Diet Order 01/11 ([facility]): Thank you, Francie Moderate Malnutrition (in acute illness) Energy Intake: <75% of estimated energy requirement for > 7 days Weight Loss: 1-2%/1 week; 5%/ 1 month; 7.5%/3 months Other: mild body fat loss; mild muscle mass loss; mild fluid accumulation; Severe Malnutrition (in acute illness) Energy Intake: < 50% of estimated energy requirement for > 5 days Weight Loss: >1-2%/1 week; >5%/1 month; >7.5%/3 months Other: moderate body fat loss; moderate muscle mass loss; moderate- severe fluid accumulation; measurably reduced nuclear logging engineer strength Moderate Malnutrition (in chronic illness) Energy Intake: <75% of estimated energy requirement for >1 month Weight Loss: 5%/1 month; 7.5%/3 months; 10%/6 months; 20%/1 year Other: mild body fat loss; mild muscle mass loss; mild fluid accumulation Severe Malnutrition (in chronic illness) Energy Intake: <75% of estimated energy requirement for >1 month Weight Loss: >5%/1 month; >7.5%/3 months; >10%/6 months; >20%/1 year Other: severe body fat loss; severe muscle mass loss; severe fluid accumulation ; measurably reduced nuclear logging engineer strength (This form is maintained as a part of the permanent medical record) 2014 [employer], [employer]. All Rights Reserved Francie Shaw RN, ASHLI [email or web address] cell phone: [facility]
--- NOTE | 2020-01-21 16:39 | EKG ---
Test Reason : ER Blood Pressure : / mmHG Vent. Rate : 080 BPM Atrial Rate : 080 BPM P-R Int : 132 ms QRS Dur : 056 ms QT Int : 342 ms P-R-T Axes : 042 043 074 degrees QTc Int : 394 ms Sinus rhythm with sinus arrhythmia with occasional Premature ventricular complexes Septal infarct , age undetermined Abnormal ECG Confirmed by JOHNNIE MARTÍNEZ DO ([id number]), associate editor GAVI MUELLER ([id number]) on 01/21/2020 4:39:45 PM Referred By: Confirmed By:JOHNNIE MARTÍNEZ DO
== END 2020-01-13 15:47 | disposition hospice, home (50) | DRG 180 ==
LOC: ERS 08:40 → 2SW 12:14
PROVIDERS: ADMIT Internal Medicine; ATTEND Internal Medicine
PROC: 8E0ZXY6 Isolation (ICD-10-PCS; principal; 2020-01-12)
DX: C34.81 Malignant neoplasm of overlapping sites of right bronchus and lung (principal); Z66 Do not resuscitate; Z51.5 Encounter for palliative care; Z20.828 Contact with and (suspected) exposure to other viral communicable diseases; J96.01 Acute respiratory failure with hypoxia; N17.9 Acute kidney failure, unspecified; J98.11 Atelectasis; I48.19 Other persistent atrial fibrillation; E78.5 Hyperlipidemia, unspecified; F03.90 Unspecified dementia, unspecified severity, without behavioral disturbance, psychotic disturbance, mood disturbance, and anxiety; I12.9 Hypertensive chronic kidney disease with stage 1 through stage 4 chronic kidney disease, or unspecified chronic kidney disease; N18.3 Chronic kidney disease, stage 3 (moderate); Z93.3 Colostomy status; Z93.6 Other artificial openings of urinary tract status; Z88.6 Allergy status to analgesic agent; Z91.041 Radiographic dye allergy status; Z85.841 Personal history of malignant neoplasm of brain; Z85.41 Personal history of malignant neoplasm of cervix uteri; Z86.73 Personal history of transient ischemic attack (TIA), and cerebral infarction without residual deficits; Z79.899 Other long term (current) drug therapy; Z79.82 Long term (current) use of aspirin; Z79.02 Long term (current) use of antithrombotics/antiplatelets; Z87.891 Personal history of nicotine dependence
CPT/HCPCS: 36415; 36416; 71045; 71250; 80048; 80053; 81003; 81015; 82553; 83880; 84484; 85025; 87635; 93005; 94640; 96365; 96366; 96367; 96368; J0692; J1650; J1956; J2920; J3370; J7050; J7070; J7512; J7620; U0003